=== PATIENT | female | born 1990 | race Caucasian/White ===

== ENCOUNTER 2020-04-25 11:51 | Outpatient (REF) | payer OTHER, SELFPAY | END 2020-04-25 11:52 | disposition home or self-care (01) | LOC: HO.LNP 11:51 | PROVIDERS: Visit Provider Internal Medicine | DX: Z20.822 Contact with and (suspected) exposure to COVID-19 (principal); J01.90 Acute sinusitis, unspecified | CPT/HCPCS: U0003 ==

== ENCOUNTER 2020-07-06 11:24 | Outpatient (REF) | payer OTHER, SELFPAY ==
[2020-07-06 13:49] LABS: MANUAL DIFF FLAG NO
[2020-07-06 14:02] LABS: Basophils Percent Auto 0.4 % (0-2); Eosinophils Absolute Auto 0.1 X10*3/uL (0.0-0.4); Eosinophils Percent Auto 0.7 % (0-4); Hematocrit 44.6 % (37-47); Hemoglobin 14.2 g/dl (12.0-16.0); Imm Gran Abs Auto 0.02 X10*3/uL (0.00-0.03); Imm Gran Pct Auto 0.2 % (0.0-0.4); Lymphocytes Absolute Auto 2.4 X10*3/uL (1.2-4.9); Lymphocytes Percent Auto 26.6 % (20-40); Mean Corpuscular HGB Conc 31.8 g/dl (31.0-35.0); Mean Corpuscular Hemoglobin 28.9 pg (27.0-33.0); Mean Corpuscular Volume 90.8 fL (80-98); Mean Platelet Volume 10.6 fL (9.4-12.3); Monocytes Absolute Auto 0.7 X10*3/uL (0.1-1.2); Monocytes Percent Auto 7.4 % (2-11); Neutrophils Absolute Auto 5.9 X10*3/uL (2.0-8.3); Neutrophils Percent Auto 64.7 % (45-73); Platelet Count 336 X10*3/uL (160-400); Red Blood Count 4.91 X10*6/uL (4.20-5.50); Red Cell Distribution Width 13.1 % (11.0-16.0); White Blood Count 9.1 X10*3/uL (4.8-10.8)
[2020-07-06 15:27] LABS: Monotest Negative (Negative)
[2020-07-07 09:06] LABS: EBV-NA IgG Index <18.00 U/mL; EBV-VCA IgG Ab <18.00 U/mL; EBV-VCA IgM Ab <36.00 U/mL
== END 2020-07-06 11:25 | disposition home or self-care (01) ==
LOC: HO.HMGCLDS 11:24
PROVIDERS: PCP Internal Medicine; Visit Provider Nurse Practitioner Family
DX: J02.9 Acute pharyngitis, unspecified (principal)
CPT/HCPCS: 36415; 85025; 86308; 86664; 86665

== ENCOUNTER 2020-07-06 11:25 | Outpatient (REF) | payer OTHER, SELFPAY | END 2020-07-06 11:26 | disposition home or self-care (01) | LOC: HO.LAB 11:25 | PROVIDERS: Visit Provider Nurse Practitioner Family | DX: J02.9 Acute pharyngitis, unspecified (principal); Z20.822 Contact with and (suspected) exposure to COVID-19 | CPT/HCPCS: 87071; 87880; U0003; U0005 ==

== ENCOUNTER 2021-02-22 16:28 | Outpatient (REF) | payer OTHER, SELFPAY ==
[2021-02-22 18:53] LABS: Influenza A PCR NEGATIVE (Negative); Influenza B PCR NEGATIVE (Negative); Resp Syncy Virus RNA Qual PCR NEGATIVE (Negative); SARS COV2 PCR INHOUSE NEGATIVE (Negative)
== END 2021-02-22 16:29 | disposition home or self-care (01) ==
LOC: HO.LNP 16:28
PROVIDERS: Visit Provider Internal Medicine
DX: Z20.822 Contact with and (suspected) exposure to COVID-19 (principal); R43.9 Unspecified disturbances of smell and taste
CPT/HCPCS: 0241U

== ENCOUNTER 2021-09-07 15:21 | Outpatient (REF) | payer OTHER, SELFPAY ==
[2021-09-07 16:03] LABS: Influenza A PCR NEGATIVE (Negative); Influenza B PCR NEGATIVE (Negative); Resp Syncy Virus RNA Qual PCR NEGATIVE (Negative); SARS COV2 PCR INHOUSE NEGATIVE (Negative)
== END 2021-09-07 15:22 | disposition home or self-care (01) ==
LOC: HO.LNP 15:21
PROVIDERS: Visit Provider Physician Assistant
DX: Z20.822 Contact with and (suspected) exposure to COVID-19 (principal); J01.90 Acute sinusitis, unspecified
CPT/HCPCS: 0241U

== ENCOUNTER 2022-02-08 10:28 | Outpatient (REF) | payer OTHER, SELFPAY ==
[2022-02-08 11:10] LABS: MANUAL DIFF FLAG NO
[2022-02-08 11:19] LABS: Basophils Percent Auto 0.3 % (0-2); Eosinophils Percent Auto 0.5 % (0-4); Hematocrit 41.1 % (37.0-47.0); Hemoglobin 13.4 g/dl (12.0-16.0); Imm Gran Abs Auto 0.02 X10*3/uL (0.00-0.03); Imm Gran Pct Auto 0.3 % (0.0-0.4); Lymphocytes Absolute Auto 1.6 X10*3/uL (1.2-4.9); Mean Corpuscular HGB Conc 32.6 g/dl (31.0-35.0); Mean Corpuscular Hemoglobin 28.6 pg (27.0-33.0); Mean Corpuscular Volume 87.8 fL (80.0-98.0); Mean Platelet Volume 10.4 fL (9.4-12.3); Monocytes Absolute Auto 0.4 X10*3/uL (0.1-1.2); Monocytes Percent Auto 6.6 % (2-11); Neutrophils Absolute Auto 3.9 x10*3/uL (2.0-8.3); Neutrophils Percent Auto 65.3 % (45-73); Platelet Count 259 X10*3/uL (160-400); Red Blood Count 4.68 X10*6/uL (4.20-5.50); Red Cell Distribution Width 12.7 % (11.0-16.0); White Blood Count 5.9 X10*3/uL (4.8-10.8)
[2022-02-08 12:32] LABS: Alanine Aminotransferase 13 U/L (0-31); Albumin Level 4.2 g/dL (3.5-5.0); Alkaline Phosphatase 65 U/L (39-117); Anion Gap 13 (12-20); Aspartate Amino Transferase 13 U/L (5-31); Bilirubin Total 0.5 mg/dL (0.0-1.0); Blood Urea Nitrogen 15 mg/dL (9-16); Carbon Dioxide 25 mmol/L (22-29); Chloride 104 mmol/L (96-108); Cholesterol 144 mg/dL; Estimated Glomerular Filt Rate > 60; Glucose Fasting 99 mg/dL (60-99); HDL Cholesterol 57 mg/dL; LDL Cholesterol Calculated 80 mg/dl; Potassium 4.4 mmol/L (3.3-5.1); Sodium 138 mmol/L (135-145); Total Protein 6.9 g/dL (6.5-8.0); Triglycerides 37 mg/dL
[2022-02-08 12:51] LABS: TSH reflex Free T4 0.46 uIU/mL (0.32-4.0)
== END 2022-02-08 10:29 | disposition home or self-care (01) ==
LOC: HO.HMGCLDS 10:28
PROVIDERS: PCP Internal Medicine; Visit Provider Internal Medicine
DX: Z00.00 Encounter for general adult medical examination without abnormal findings (principal)
CPT/HCPCS: 36415; 80053; 80061; 84443; 85025

== ENCOUNTER 2022-04-12 09:06 | Emergency (ER) | payer OTHER, SELFPAY ==
--- NOTE | ~2022-04-12 | XR_ITS ---
EXAMINATION: XR CHEST CLINICAL INFORMATION: SOB. COMPARISON: None TECHNIQUE: Frontal view of the chest was obtained. FINDINGS: No significant abnormality is noted involving the heart, lungs, mediastinum, bony thorax or soft tissues. XR/XR chest 1V IMPRESSION: Unremarkable chest examination.
[2022-04-12 09:08] VITALS: BP 117/76; PULSE 108; RESP 18; TEMP 36.7; O2SAT 100; BMI 42.2
--- NOTE | 2022-04-12 09:28 | ED.SOB ---
HPI - SOB/Dyspnea General Chief Complaint: Dyspnea Stated Complaint: DIFF BREATHING Time Seen by Provider: 04/12/22 09:22 Source: patient Mode of arrival: ambulatory History of Present Illness HPI Narrative: 31-year-old female no significant past medical history presenting to the ED complaining chills, congestion, headache, nausea, vomiting, and SOB since yesterday. Headache not maximal onset. Denies fever, chest pain, abdominal pain, diarrhea/constipation, recent travel, oral OCPs, cigarette smoking, sick contacts MD elicited complaint: shortness of breath Onset (ago): hour(s) Related Data Previous Rx's Medication Instructions Recorded hydrocortisone 1 % topical cream 1 appl topical TID PRN skin 09/07/21 (Cortisone (hydrocortisone)) irritation 12 days #28.35 grams omeprazole 20 mg capsule,delayed 20 mg PO DAILY #30 caps 01/30/22 release conkdburua-bbzpibcplcsrs-lopxjjwt 1 cap PO Q4-6H PRN headache #14 04/12/22 50 mg-300 mg-40 mg capsule caps (Fioricet) ondansetron 4 mg disintegrating 4 mg PO Q8H PRN nausea and 04/12/22 tablet vomiting #10 tabs Allergies Allergy/AdvReac Type Severity Reaction Status Date / Time amoxicillin [AMOXICILLIN] Allergy Unknown HIVES Verified 01/03/22 10:57 penicillin V Allergy Unknown hives Verified 01/03/22 10:57 Penicillins [PCN] Allergy Unknown HIVES Verified 01/03/22 10:57 Review of Systems Review of Systems: Constitutional:No Fever, + Chills ENT/Mouth: No Ear Pain, + Nasal Congestion, No Sinus Pain, No Hoarseness, No sore throat, + Rhinorrhea, No Swallowing Difficulty Cardiovascular: No Chest Pain, + SOB Respiratory: + Cough, No Sputum, No Wheezing Gastrointestinal: + Nausea, + Vomiting, No Diarrhea, No Constipation, No Abdominal pain Genitourinary: No Dysuria, No Urinary Frequency, No Urgency, No Flank Pain Musculoskeletal: No joint pain, + Myalgias, No Joint Swelling Skin: No Skin Lesions, No rash Neuro: No Weakness, No Numbness, No Paresthesias Yes all other systems are reviewed and are negative Constitutional: Constitutional: Reports as per [facility] Past Medical History Attestation statement: The following information was validated with the patient. Social History Social History Housing: House Alcohol intake: unknown Patient Tobacco Use Status: Former Tobacco user (10 years ago) Smoked in Last 30 Days: No e-Cigarette/Vaping Use: Never Used Use of substances other than those prescribed or required for medical reasons: Unknown Advance Directives: No Advance Directives Information Provided: No Patient : No Current occupational status: employed Cognitive needs: No Hearing needs: No Vision needs: Yes Physical Exam Vital Signs: Vital Signs: Last Vital Signs Temp 98.0 F 04/12/22 09:08 Pulse 95 04/12/22 11:01 Resp 18 04/12/22 09:08 BP 117/76 04/12/22 09:08 Pulse Ox 96 04/12/22 11:01 O2 Del Method 04/12/22 11:01 BMI result Body Mass Index 42.2 Const: General: cooperative, healthy appearing, no acute distress, alert and awake Orientation/consciousness: patient oriented x3 Limitations: no limitations HEENT: Head: Yes normal to inspection and Yes atraumatic Ears: hearing grossly normal bilaterally, external ears normal, TM's normal bilaterally and mastoids normal General nose exam: Normal external nose present Face and sinus: Yes normal facial exam Mouth: Normal oral and palatal mucosa present Throat: Yes posterior oropharynx normal, Yes tonsils normal, Yes uvula midline, No peritonsillar mass, No uvula laterally displaced and No uvular edema Eyes: General: appearance normal, both eyes and all related structures EOM: EOMs intact bilaterally Neck: Neck: Yes normal visual inspection and Yes no meningeal signs Resp: Effort & Inspection: normal respiratory effort, no respiratory distress and no stridor Auscultation: clear to auscultation bilaterally, no rales, no rhonchi and no wheezes Cardio: Rate: regular rate Heart sounds: S1 normal heart sound present and S2 normal heart sound present GI: Inspection: Yes normal to inspection Palpation (GI): Soft to palpation, nontender, no guarding and not rigid Skin: Rashes: no rashes Wounds: no wounds Neuro: General: patient oriented x3, tone normal and no meningeal signs Gait exam (Neuro): Normal gait present Extrem: General: Yes normal to inspection Course Course Course Narrative: 1052--COVID-19 and influenza negative. CXR unremarkable On re-evaluation patient reports symptomatic improvement. Feels safe for discharge with time, headache resolved. Results discussed with patient including worrisome signs and symptoms and strict return precautions, and when to return to the emergency department. They verbalized understanding and feel safe for discharge at this time. Medications Administered Discontinued Medications Generic Name Dose Route Start Last Admin Trade Name Angie PRN Reason Stop Dose Admin Acetaminophen/Butalbital/Caffeine 1 tab 04/12/22 09:33 04/12/22 09:42 Butalb/Acetamin/Caff 50/325/40 Tablet PO 04/12/22 09:34 1 tab ONCE ONE Administration Ondansetron HCl 4 mg 04/12/22 09:33 04/12/22 09:42 Ondansetron Odt 4 Mg Tab.Rapdis TRANSLINGU 04/12/22 09:34 4 mg ONCE ONE Administration Medical Decision Making Medical Decision Making MDM Narrative: 31-year-old female no significant past medical history presenting to the ED complaining chills, congestion, headache, nausea, vomiting, and SOB since yesterday. On exam tachycardic to 108 likely from active dry heaving during evaluation, lungs CTA, nontoxic appearing, abdomen soft/nontender. Concern for viral illness. Rule out pneumonia. Low suspicion for ACS/PE or intra-abdominal pathology including appendicitis/diverticulitis Plan: COVID-19/influenza, CXR, PO Fioricet/Zofran, p.o. challenge Please refer to course for remaining clinical decision making, interpretation of labs/imaging results, and discussions with consultants and/or family members. Differential Diagnosis Differential Diagnoses: The differential diagnosis associated with the presentation includes As above Lab Data Labs: Lab Results 04/12/22 04/12/22 Range/Units 09:13 09:13 COVID-19 (ADARSH) Negative (Negative) COVID-19 Clin Com See Note Influenza Type A (SHELIA) Negative (Negative) Influenza Type B (SHELIA) Negative (Negative) Influenza A & B Note See Note Radiology Impression Discussion of test interpretation with radiology: I have reviewed the radiologist's reading. Prescription Management I considered prescription management with: Pain Medication and Antiviral Discharge Plan Discharge Clinical Impression: Acute viral syndrome Patient Disposition: Home, Self-Care Instructions: Viral Syndrome (ED) Additional Instructions: You tested negative for COVID-19 and the flu. Her x-ray is unremarkable Fioricet is for headaches, take as needed, be aware this has Tylenol mixed in do not exceed 4 g in 1 day Zofran as for nausea take as needed Please stay hydrated, rest Follow-up with her doctor If symptoms persist or worsen return to the emergency department Prescriptions: New ondansetron 4 mg tablet,disintegrating 4 mg PO Q8H PRN (Reason: nausea and vomiting) Qty: 10 0RF xgomntnlzi-grjsduqxtveok-hhkd [Fioricet] 50-300-40 mg capsule 1 cap PO Q4-6H PRN (Reason: headache) Qty: 14 0RF No Action omeprazole 20 mg capsule,delayed release(DR/EC) 20 mg PO DAILY Qty: 30 6RF hydrocortisone [Cortisone (hydrocortisone)] 1 % cream 1 appl topical TID PRN (Reason: skin irritation) 12 Days Qty: 28.35 0RF Referrals: Bridgette Del Rio MD [Primary Care Provider] - 1 week Interventions: ED Discharge Assessment Last Done: 04/12/22 11:01 Discharge Date/Time: 04/12/22 11:03
[2022-04-12 09:36] LABS: COVID-19 Test Negative (Negative); IDNOW Serial# 16C4AD1C; IDNOW Serial# BCCEAD1C; Influenza A Negative (Negative); Influenza B2 Negative (Negative)
[2022-04-12] MEDS: Butalb/Acetamin/Caff 50/325/40 TABLET 1 TAB PO (09:42)
[2022-04-12] MEDS: Ondansetron ODT 4 MG TAB.RAPDIS TRANSLINGU (09:42)
[2022-04-12 11:01] VITALS: PULSE 95; O2SAT 96
== END 2022-04-12 11:03 | disposition home or self-care (01) ==
PROVIDERS: Emergency Provider Emergency Medicine Emergency Medical Services; PCP Internal Medicine
DX: B34.9 Viral infection, unspecified (principal); R06.02 Shortness of breath; Z20.822 Contact with and (suspected) exposure to COVID-19
CPT/HCPCS: 71045; 87502; 87635; 99283; 99284

== ENCOUNTER 2022-05-20 08:32 | Outpatient (REF) | payer OTHER, SELFPAY ==
[2022-05-20 08:47] LABS: Binax Internal Control QC Valid; Binax Now Covid-19 Ag Positive (Negative); Binax Performed by: HO.BONILM
== END 2022-05-20 08:33 | disposition home or self-care (01) ==
LOC: HO.HMGCLDS 08:32
PROVIDERS: PCP Internal Medicine; Visit Provider Emergency Medicine
DX: J06.9 Acute upper respiratory infection, unspecified (principal); Z20.822 Contact with and (suspected) exposure to COVID-19
CPT/HCPCS: 87811; C9803

== ENCOUNTER 2022-09-05 17:49 | Emergency (ER) | payer OTHER, SELFPAY ==
--- NOTE | ~2022-09-05 | XR_ITS ---
EXAMINATION: XR CHEST CLINICAL INFORMATION: Chest pain COMPARISON: 04/12/2022, 01/01/2019 TECHNIQUE: 2 views of the chest were obtained. FINDINGS: No acute finding. The lung laureano are grossly clear. Prominent cardiac silhouette but this could be due to projection. There is no infiltrate. No effusion. The hilar regions do not appear pathologically enlarged. XR/XR chest 2V IMPRESSION: Mild cardiac silhouette prominence. Could be projectional. Otherwise unremarkable
[2022-09-05 18:22] VITALS: BP 122/82; PULSE 88; RESP 18; TEMP 36.8; O2SAT 100; BMI 39.1
--- NOTE | 2022-09-05 18:23 | ECG_ITS ---
Test Reason : dizziness Blood Pressure : / mmHG Vent. Rate : 088 BPM Atrial Rate : 088 BPM P-R Int : 136 ms QRS Dur : 090 ms QT Int : 372 ms P-R-T Axes : 038 062 038 degrees QTc Int : 450 ms Normal sinus rhythm Normal ECG No previous ECGs available Referred By: Patricia Hickman Electronically Signed By:DUANE PARHAM MD
--- NOTE | 2022-09-05 18:23 | ED.GENADULT ---
HPI - General Adult General Chief complaint: General Medical Stated complaint: Chest pain/n/v/d/diff breathing Time Seen by Provider: 09/05/22 23:34 Source: patient, RN notes reviewed and old records reviewed Mode of arrival: ambulatory Limitations: no limitations History of Present Illness HPI narrative: 31-year-old female who denies any past medical history presents for evaluation of headache, dry cough, chest pain Patient reports that she woke up this morning with a mild headache She states that she was vomiting approximately every 20 minutes a few hours The nausea has since subsided However now she still has a frontal headache The pain is a 7/10. The patient reports that 3 days ago she returned from the [facility] [place] She also complains of a dry cough and some mild chest pain Related Data Previous Rx's Medication Instructions Recorded azithromycin 250 mg tablet See Rx Instructions PO .COMPLEX #6 08/22/22 tabs prednisone 20 mg tablet 20 mg PO DAILY #5 tabs 08/22/22 ehmegfpuvd-jvgznkzwosala-mktffagg 1 cap PO TID PRN headache #15 caps 09/06/22 50 mg-300 mg-40 mg capsule (Fioricet) ondansetron 4 mg disintegrating 4 mg PO Q8H PRN nausea and 09/06/22 tablet vomiting #20 tabs Allergies Allergy/AdvReac Type Severity Reaction Status Date / Time amoxicillin [AMOXICILLIN] Allergy Unknown HIVES Verified 08/22/22 12:01 penicillin V Allergy Unknown hives Verified 08/22/22 12:01 Penicillins [PCN] Allergy Unknown HIVES Verified 08/22/22 12:01 Review of Systems Constitutional: Constitutional: Reports as per HPI, Denies body ache(s), Denies chills, Denies fatigue, Denies fever(s) and Reports headache(s) ENT: Reports dry mouth and Reports headache(s) Cardiovascular: Cardiovascular: Reports chest pain and Denies dyspnea Respiratory: Respiratory: Reports cough and Denies dyspnea Gastrointestinal: Gastrointestinal: Denies abdominal pain, Denies constipation, Denies nausea and Denies vomiting Genitourinary: Genitourinary: Denies dysuria Neurologic: Reports headache(s) and Denies focal weakness Endocrine: Endocrine: Denies fatigue PMF Family History Family History Father Hypertension Mental health disorder Mother No problems noted. Social History Social History Housing: House Alcohol intake: unknown Patient Tobacco Use Status: Former Tobacco user (10 years ago) e-Cigarette/Vaping Use: Never Used Advance Directives: No Advance Directives Information Provided: Yes Current occupational status: employed Cognitive needs: No Hearing needs: No Vision needs: Yes Physical Exam ED Vital Signs: Vital Signs - 24 hr 09/05/22 18:22 Temperature 98.3 F Pulse Rate 88 Respiratory Rate 18 Blood Pressure 122/82 Pulse Oximetry 100 Oxygen Delivery Method Room Air BMI result Body Mass Index 39.1 Const General: healthy appearing, comfortable, no acute distress, alert and awake Nutritional Appearance: well nourished Orientation/consciousness: patient oriented x3 HENMT Head: Yes normocephalic and Yes atraumatic Ears: TM's normal bilaterally Throat: Yes posterior oropharynx normal Eyes Eyelids: Yes eyelids normal Conjunctivae: conjunctivae normal Sclerae: sclerae normal Corneas: corneas normal Pupils: Equal, round and reactive pupils present EOM: EOMs intact bilaterally Neck Neck: Yes full ROM Resp Effort & Inspection: normal respiratory effort, able to speak in complete sentences, no audible wheezes and not labored Auscultation: clear to auscultation bilaterally Cardio Rate: regular rate Rhythm: regular rhythm GI Inspection: No distended Palpation (GI): Soft to palpation, not firm, nontender, no guarding and not rigid Auscultation: normoactive bowel sounds Skin General skin exam: no rashes or lesions noted and elasticity normal Neuro General: patient oriented x3 Cranial nerves: Yes CN's II-XII intact bilaterally, Yes Equal, round and reactive pupils present and Yes Bilaterally intact EOM present Cognition (Neuro): normal cognition Extrem Other: Moving all extremities well without any obvious deformities Course Course Course Narrative: RME performed by Patricia Hickman PA-C. Patient is a 31 year old assigned female at presenting to the emergency department with a cough and migraine. Labs, imaging, and swabs ordered. Patient placed back in the waiting room pending room availability and results. Medications Administered Discontinued Medications Generic Name Dose Route Start Last Admin Trade Name Freq PRN Reason Stop Dose Admin Acetaminophen/Butalbital/Caffeine 1 tab 09/05/22 23:41 09/06/22 00:09 Butalb/Acetamin/Caff 50/325/40 Tablet PO 09/05/22 23:42 1 tab ONCE ONE Administration Ketorolac Tromethamine 30 mg 09/05/22 23:41 09/06/22 00:09 Ketorolac Tromethamine 30 Mg/Ml Vial IM 09/05/22 23:42 30 mg ONCE ONE Administration Medical Decision Making Medical Decision Making [facility] Narrative: 31-year-old female presents for evaluation of headache, cough, chest pain, vomiting. Consistent with viral syndrome. She had a very extensive workup that included EKG, chest x-ray, labs all of which was reassuring. Patient does have a slight leukocytosis of 14.3 which is likely reactive from the vomiting. Influenza and COVID testing negative. Chest x-ray clear, EKG nonischemic and the patient's troponin is negative. Will treat the headache with Toradol and Fioricet. The patient is not currently nauseous or actively vomiting Differential Diagnosis Differential Diagnoses: The differential diagnosis associated with the presentation includes Viral syndrome Acute headache Chest pain ACS Bronchitis Pneumonia Lab Data [facility] Lab Attestation statement: I reviewed the patient's lab results. 09/05/22 19:02 09/05/22 19:02 Labs: Lab Results 09/05/22 09/05/22 09/05/22 Range/Units 19:02 19:02 19:02 WBC 14.1 H (4.8-10.8) X10*3/uL RBC 4.85 (4.20-5.50) X10*6/uL Hgb 14.0 (12.0-16.0) g/dl Hct 42.4 (37.0-47.0) % MCV 87.4 (80.0-98.0) fL MCH 28.9 (27.0-33.0) pg MCHC 33.0 (31.0-35.0) g/dl RDW 12.8 (11.0-16.0) % Plt Count 306 (160-400) X10*3/uL MPV 9.5 (9.4-12.3) fL Immature Gran % (Auto) 0.4 (0.0-0.4) % Neut % (Auto) 85.7 H (45-73) % Lymph % (Auto) 11.0 L (20-40) % [place] % (Auto) 2.7 (2-11) % Eos % (Auto) 0.1 (0-4) % Baso % (Auto) 0.1 (0-2) % Lymph # (Auto) 1.5 (1.2-4.9) X10*3/uL [place] # (Auto) 0.4 (0.1-1.2) X10*3/uL Eos # (Auto) 0.0 (0.0-0.4) X10*3/uL Baso # (Auto) 0.0 (0.0-0.2) X10*3/uL Abs Immat Gran (auto) 0.05 H (0.00-0.03) X10*3/uL Absolute Neuts (auto) 12.1 H (2.0-8.3) x10*3/uL Absolute Nucleated RBC 0.000 (0.0-0.012) X10*3/uL Nucleated RBC % (auto) 0.0 (0.0-0.2) /100WBC Sodium 136 (135-145) mmol/L Potassium 4.3 (3.3-5.1) mmol/L Chloride 102 (96-108) mmol/L Carbon Dioxide 27 (22-29) mmol/L Anion Gap 11 L (12-20) BUN 15 (9-16) mg/dL Creatinine 0.72 (0.5-1.4) mg/dL Estim Creat Clear Calc 115.7 Estimated GFR > 60 Random Glucose 113 (60-115) mg/dL Calcium 9.7 D (8.4-10.2) mg/dL Magnesium 1.9 (1.6-2.6) mg/dL Total Bilirubin 0.5 (0.0-1.0) mg/dL AST 20 (5-31) U/L ALT 20 (0-31) U/L Alkaline Phosphatase 81 (39-117) U/L Troponin I High Sens < 2.7 (<3.5-17.0) ng/L B-Natriuretic Peptide (<100) pg/mL Total Protein 7.5 (6.5-8.0) g/dL Albumin 4.3 (3.5-5.0) g/dL Beta HCG, Quant < 2 mIU/mL COVID-19 (ADARSH) (Negative) COVID-19 Clin Com Influenza Type A (SHELIA) (Negative) Influenza Type B (SHELIA) (Negative) Influenza A & B Note 09/05/22 09/05/22 09/05/22 Range/Units 19:02 19:02 19:02 WBC (4.8-10.8) X10*3/uL RBC (4.20-5.50) X10*6/uL Hgb (12.0-16.0) g/dl Hct (37.0-47.0) % MCV (80.0-98.0) fL MCH (27.0-33.0) pg MCHC (31.0-35.0) g/dl RDW (11.0-16.0) % Plt Count (160-400) X10*3/uL MPV (9.4-12.3) fL Immature Gran % (Auto) (0.0-0.4) % Neut % (Auto) (45-73) % Lymph % (Auto) (20-40) % [place] % (Auto) (2-11) % Eos % (Auto) (0-4) % Baso % (Auto) (0-2) % Lymph # (Auto) (1.2-4.9) X10*3/uL [place] # (Auto) (0.1-1.2) X10*3/uL Eos # (Auto) (0.0-0.4) X10*3/uL Baso # (Auto) (0.0-0.2) X10*3/uL Abs Immat Gran (auto) (0.00-0.03) X10*3/uL Absolute Neuts (auto) (2.0-8.3) x10*3/uL Absolute Nucleated RBC (0.0-0.012) X10*3/uL Nucleated RBC % (auto) (0.0-0.2) /100WBC Sodium (135-145) mmol/L Potassium (3.3-5.1) mmol/L Chloride (96-108) mmol/L Carbon Dioxide (22-29) mmol/L Anion Gap (12-20) BUN (9-16) mg/dL Creatinine (0.5-1.4) mg/dL Estim Creat Clear Calc Estimated GFR Random Glucose (60-115) mg/dL Calcium (8.4-10.2) mg/dL Magnesium (1.6-2.6) mg/dL Total Bilirubin (0.0-1.0) mg/dL AST (5-31) U/L ALT (0-31) U/L Alkaline Phosphatase (39-117) U/L Troponin I High Sens (<3.5-17.0) ng/L B-Natriuretic Peptide 18 (<100) pg/mL Total Protein (6.5-8.0) g/dL Albumin (3.5-5.0) g/dL Beta HCG, Quant mIU/mL COVID-19 (ADARSH) Negative (Negative) COVID-19 Clin Com See Note Influenza Type A (SHELIA) Negative (Negative) Influenza Type B (SHELIA) Negative (Negative) Influenza A & B Note See Note Independent Interpretation I performed an independent interpretation of an: EKG (Sinus rhythm with a rate of 88 beats per minute. Nonischemic EKG) and Plain X-Ray (X-ray without acute infiltrate) Discharge Plan Discharge Clinical Impression: Acute viral syndrome, Headache Patient Disposition: Home, Self-Care Instructions: Viral Syndrome (ED) Additional Instructions: Use Zofran as needed for any further nausea or vomiting. Use Fioricet for any further headaches Drink lots of fluids to stay hydrated Prescriptions: New gdhblmsytb-ekemynygsukdx-nwbj [Fioricet] 50-300-40 mg capsule 1 cap PO TID PRN (Reason: headache) Qty: 15 0RF ondansetron 4 mg tablet,disintegrating 4 mg PO Q8H PRN (Reason: nausea and vomiting) Qty: 20 0RF No Action azithromycin 250 mg tablet See Rx Instructions PO .COMPLEX Qty: 6 0RF Rx Instructions: For 250 mg dose pack: take 500 mg today (day 1), then 250 mg for 4 days (days 2-5) PO prednisone 20 mg tablet 20 mg PO DAILY Qty: 5 0RF
--- NOTE | 2022-09-05 19:05 | MHC.EDTECH ---
PT EKG DONE AND WAS READ BY PROVIDER ,COVID AND FLU SWAB COLLECTED AND BLOOD DRAWN AND ALL SENT TO LAB .
[2022-09-05 19:08] LABS: MANUAL DIFF FLAG NO
[2022-09-05 19:10] LABS: Basophils Percent Auto 0.1 % (0-2); Eosinophils Percent Auto 0.1 % (0-4); Hematocrit 42.4 % (37.0-47.0); Imm Gran Abs Auto 0.05 X10*3/uL (0.00-0.03); Imm Gran Pct Auto 0.4 % (0.0-0.4); Lymphocytes Absolute Auto 1.5 X10*3/uL (1.2-4.9); Mean Corpuscular Hemoglobin 28.9 pg (27.0-33.0); Mean Corpuscular Volume 87.4 fL (80.0-98.0); Mean Platelet Volume 9.5 fL (9.4-12.3); Monocytes Absolute Auto 0.4 X10*3/uL (0.1-1.2); Monocytes Percent Auto 2.7 % (2-11); Neutrophils Absolute Auto 12.1 x10*3/uL (2.0-8.3); Neutrophils Percent Auto 85.7 % (45-73); Platelet Count 306 X10*3/uL (160-400); Red Blood Count 4.85 X10*6/uL (4.20-5.50); Red Cell Distribution Width 12.8 % (11.0-16.0); White Blood Count 14.1 X10*3/uL (4.8-10.8)
[2022-09-05 19:28] LABS: IDNOW Serial# BCCEAD1C; Influenza A Negative (Negative); Influenza B2 Negative (Negative)
[2022-09-05 19:29] LABS: COVID-19 Test Negative (Negative); IDNOW Serial# 08D9AD1C
[2022-09-05 19:33] LABS: B Type Natriuretic Peptide 18 pg/mL (<100)
[2022-09-05 19:35] LABS: Alanine Aminotransferase 20 U/L (0-31); Albumin Level 4.3 g/dL (3.5-5.0); Alkaline Phosphatase 81 U/L (39-117); Anion Gap 11 (12-20); Aspartate Amino Transferase 20 U/L (5-31); Bilirubin Total 0.5 mg/dL (0.0-1.0); Blood Urea Nitrogen 15 mg/dL (9-16); Calcium 9.7 mg/dL (8.4-10.2); Carbon Dioxide 27 mmol/L (22-29); Chloride 102 mmol/L (96-108); Creatinine Clr Calc Pharmacy 115.7; Estimated Glomerular Filt Rate > 60; Glucose Random 113 mg/dL (60-115); Magnesium 1.9 mg/dL (1.6-2.6); Potassium 4.3 mmol/L (3.3-5.1); Sodium 136 mmol/L (135-145); Total Protein 7.5 g/dL (6.5-8.0)
[2022-09-05 19:37] LABS: HCG Quantitative < 2 mIU/mL
[2022-09-05 19:38] LABS: Troponin-I High Sensitivity < 2.7 ng/L (<3.5-17.0)
--- NOTE | 2022-09-05 23:36 | PC.NURSE ---
pt brought to tx area from . Ambulatory with steady gait, no facial grimace. Talking with sig other at bedside. Awaiting provider eval
[2022-09-06] MEDS: Butalb/Acetamin/Caff 50/325/40 TABLET 1 TAB PO (00:09)
[2022-09-06] MEDS: Ketorolac Tromethamine 30 MG/ML VIAL IM (00:09)
== END 2022-09-06 02:03 | disposition home or self-care (01) ==
PROVIDERS: Physician Assistant Medical; Emergency Provider Emergency Medicine; PCP Nurse Practitioner Family
DX: B34.9 Viral infection, unspecified (principal); R51.9 Headache, unspecified; Z20.822 Contact with and (suspected) exposure to COVID-19; R06.02 Shortness of breath
CPT/HCPCS: 71046; 80053; 83735; 83880; 84484; 84702; 85025; 87502; 87635; 93005; 96372; 99283; 99284; J1885

== ENCOUNTER 2022-12-22 15:19 | Outpatient (AMB) | payer OTHER, SELFPAY ==
[2022-12-22 15:51] VITALS: BP 124/74; PULSE 97; TEMP 36.7; O2SAT 96; BMI 42.4
--- NOTE | 2022-12-22 15:51 | AM.OFFWIN_ITS ---
Intake Vital Signs 12/22/22 15:51 Height 5 ft Weight 217 lb 6 oz BMI 42.4 BP 124/74 Blood Pressure Location Lt brachial Position Sitting Pulse 97 Pulse Source Pulse Oximeter Temp 98.1 F Temp Source Oral Pulse Oximetry (%) 96 Oxygen Delivery Method Room Air Intake Visit Reasons: EST/right hand pointer finger swelling Intake Note: Patient is here today for black and blue finger, pt states last night was hit with a metal fan and fing.er has no feeling. Patient Tobacco Use Status: Former Tobacco user (10 years ago) Allergies amoxicillin [AMOXICILLIN] Allergy (Unknown, Verified 12/22/22 15:51) HIVES penicillin V Allergy (Unknown, Verified 12/22/22 15:51) hives Penicillins [PCN] Allergy (Unknown, Verified 12/22/22 15:51) HIVES Do you need a note to return to daycare/school/sports/work: No HPI EST/right hand pointer finger swelling HPI Details 32-year-old female presents to the [facility] for a sick visit. Patient injured herself when a metal fan hit her hand. She has a swelling over the index finger and reporting a feeling of numbness over the finger. PFSH Family History Father Hypertension Mental health disorder Mother No problems noted. Social History Housing: House Alcohol intake: unknown Patient Tobacco Use Status: Former Tobacco user (10 years ago) e-Cigarette/Vaping Use: Never Used Current occupational status: employed Cognitive needs: No Hearing needs: No Vision needs: Yes Physical Exam Vital Signs: Last Vital Signs Temp 98.1 F 12/22/22 15:51 Pulse 97 12/22/22 15:51 BP 124/74 12/22/22 15:51 Pulse Ox 96 12/22/22 15:51 Oxygen Delivery Method Room Air 12/22/22 15:51 BMI result Body Mass Index 42.4 Extrem Other: Left hand: Bruising over the index finger with pain on flexion. Assessment & Plan Assessment & Plan (1) Contusion of left hand: Code(s): S60.222A - Contusion of left hand, initial encounter Qualifiers: Encounter type: initial encounter Qualified Code(s): S60.222A - Contusion of left hand, initial encounter Plan: X-ray images personally reviewed by me. Plan X-ray images were personally reviewed by me. No fractures seen. Splint provided. Orders: Orders XR hand LT min 3V 12/22/22 S60.222A - Contusion of left hand, initial encounter Coding Level of Care Code Est Pt Level 4 (75662) Diagnoses Contusion of left hand, initial encounter S60.222A Encounter type: initial encounter
== END 2022-12-22 17:03 | disposition home or self-care (01) ==
PROVIDERS: PCP Nurse Practitioner Family; Visit Provider Internal Medicine
DX: S60.222A Contusion of left hand, initial encounter (principal)
CPT/HCPCS: 99214

== ENCOUNTER 2022-12-22 16:16 | Outpatient (REF) | payer OTHER, SELFPAY ==
--- NOTE | ~2022-12-22 | XR_ITS ---
EXAMINATION: XR HAND, LEFT CLINICAL INFORMATION: Contusion of left hand. COMPARISON: None available. TECHNIQUE: PA, lateral, and oblique views of the left hand. FINDINGS: The bones and soft tissues are normal. No fracture. Alignment is anatomic. Joint spaces are maintained. No erosions or soft tissue calcifications. XR/XR hand LT min 3V IMPRESSION: Normal left hand.
== END 2022-12-22 16:17 | disposition home or self-care (01) ==
LOC: HO.HMGCX 16:16
PROVIDERS: PCP Internal Medicine; Visit Provider Internal Medicine
DX: S60.222A Contusion of left hand, initial encounter (principal)
CPT/HCPCS: 73130

== ENCOUNTER 2023-01-09 12:52 | Outpatient (AMB) | payer OTHER, SELFPAY ==
--- NOTE | 2023-01-09 12:57 | MHC.PC.OV ---
Vital Signs 01/09/23 12:58 Height 5 ft Weight 215 lb BMI 42.0 BP 102/68 Blood Pressure Location Lt brachial Position Sitting Pulse 77 Pulse Source Pulse Oximeter Pulse Oximetry (%) 100 Oxygen Delivery Method Room Air Intake Visit Reasons: Physical Intake Note: Pt is here today for her PE Allergies amoxicillin [AMOXICILLIN] Allergy (Unknown, Verified 01/09/23 12:57) HIVES penicillin V Allergy (Unknown, Verified 01/09/23 12:57) hives Penicillins [PCN] Allergy (Unknown, Verified 01/09/23 12:57) HIVES Medication List - Last Reconciled 01/09/23 by Bridgette Del Rio MD epinephrine IM levonorgestrel (Mirena) intrauterine Tobacco use date assessed: 01/09/23 Dental Screening Dental Screen Date: 01/09/23 Did you have a dental visit in the last 12 months?: No Was dental information given to patient?: Patient has dentist HPI Physical HPI Details Pt presents for PE. PFSH Family History Father Hypertension Mental health disorder Mother No problems noted. Social History Housing: House Alcohol intake: unknown Patient Tobacco Use Status: Former Tobacco user (10 years ago) e-Cigarette/Vaping Use: Never Used Current occupational status: employed Cognitive needs: No Hearing needs: No Vision needs: Yes Questionnaire PHQ-9 Over the last 2 weeks, how often have you been bothered by any of the following problems? 1. Little interest or pleasure in doing things: more than half the days 2. Feeling down, depressed, or hopeless: several days 3. Trouble falling or staying asleep, or sleeping too much: not at all 4. Feeling tired or having little energy: not at all 5. Poor appetite or overeating: not at all 6. Feeling bad about yourself - or that you are a failure or have let yourself or your family down: not at all 7. Trouble concentrating on things, such as reading the newspaper or watching television: more than half the days 8. Moving or speaking so slowly that other people could have noticed. Or the opposite - being so fidgety or restless that you have been moving around a lot more than usual: not at all 9. Thoughts that you would be better off or of hurting yourself in some way: not at all Total score: 5 Depression Screening Interpretation: Negative Depression Screening Done: Yes Source: Developed by Drs. Chris Braxton, Cynthia Enriquez, Andrea Sheikh and colleagues, with an educational ayo from [employer]. Thrive Questionnaire Date Thrive assessed: 01/03/22 I am a: Patient What is your living situation today?: I have a steady place to live Within the past 12 months, did the food you bought not last and you didn't have the money to get more?: Never true Within the past 12 months, did you worry whether your food would run out before you got money to buy more?: Never true Do you have trouble paying for medicines?: No Do you have trouble getting transportation to medical appointments?: No Do you have trouble paying your heating and electricity bill?: No Do you have trouble taking care of your child, family member or friend?: No Do you have trouble with day-to-day activities such as bathing, preparing meals, shopping, managing finances, etc.?: No Are you currently unemployed and looking for a job?: No Are you interested in more education?: No AUDIT C Alcohol Use Questionnaire (AUDIT-C) 1. How often do you have a drink containing alcohol?: Monthly or less 2. How many drinks containing alcohol do you have on a typical day when you are drinking?: 1 or 2 3. How often do you have six or more drinks on one occasion?: Never Total Score: 1 GONZALO-7 AMB Questionnaire GONZALO-7 Date GONZALO - 7 assessed: 01/09/23 Feeling nervous, anxious, or on edge: 3 = Nearly every day Not being able to stop or control worryin = Nearly every day Worrying too much about different things: 3 = Nearly every day Trouble relaxin = More than half the days Being so restless that it is hard to sit still: 1 = Several days Becoming easily annoyed or irritable: 0 = Not at all Feeling afraid as if something awful might happen: 0 = Not at all Total GONZALO-7 score (0-4 normal; 5-9 mild; 10-14 moderate; 15-21 severe): 12 Source: Developed by Drs. Chris Braxton, Cynthia Enriquez, Andrea Sheikh and colleagues, with an educational ayo from [employer]. Review of Systems Const All systems reviewed & are unremarkable except as noted in HPI and below Reports no additional complaints Eyes Reports no additional complaints ENT Reports no additional complaints Card Reports no additional complaints Resp Reports no additional complaints GI Reports no additional complaints Reports no additional complaints Musc Reports no additional complaints Physical exam (Primary Care) Vital Signs: Last Vital Signs Pulse 77 01/09/23 12:58 BP 102/68 01/09/23 12:58 Pulse Ox 100 01/09/23 12:58 Oxygen Delivery Method Room Air 01/09/23 12:58 BMI result Body Mass Index 42.0 Tobacco/Smoking Status: Tobacco use Status Tobacco use date assessed 01/09/23 01/09/23 13:05 Patient Tobacco Use Status Former Tobacco user (01/09/23 13:05 years ago) e-Cigarette/Vaping Use Never Used 01/09/23 13:05 PHQ-9: PHQ-9 Score PHQ-9: Total score 5 01/09/23 13:08 Depression Screening Interpretation: Negative Thrive Assessment: Date of Thrive Assessment Date Thrive assessed 01/03/22 01/09/23 13:05 Const General: no acute distress HENMT Head: Yes normal to inspection Ears: hearing grossly normal bilaterally General nose exam: Normal external nose present Face and sinus: Yes normal facial exam Mouth: Normal oral and palatal mucosa present Throat: Yes posterior oropharynx normal Eyes General: appearance normal, both eyes and all related structures Neck Neck: Yes no lymphadenopathy and Yes supple Resp Effort & Inspection: normal respiratory effort Auscultation: clear to auscultation bilaterally Cardio Rhythm: regular rhythm Heart sounds: S1 normal heart sound present and S2 normal heart sound present GI Inspection: Yes normal to inspection Palpation (GI): Soft to palpation Percussion: Yes normal to percussion Auscultation: normal bowel sounds Assessment and Plan Assessment & Plan (1) Annual physical exam: Code(s): Z00.00 - Encounter for general adult medical examination without abnormal findings Plan: well balanced diet, regular exercise discussed. Patient will schedule appointment with the sink cutter. She will be referred to counseling for anxiety and stress management (2) Anxiety: Code(s): F41.9 - Anxiety disorder, unspecified Orders: Referrals Counseling Referral F41.9 - Anxiety disorder, unspecified Coding Level of Care Code Est Pt Prev Care 18-39y(81239) Diagnoses Annual physical exam Z00.00 Anxiety F41.9
[2023-01-09 12:58] VITALS: BP 102/68; PULSE 77; O2SAT 100; BMI 42.0
== END 2023-01-09 13:38 | disposition home or self-care (01) ==
PROVIDERS: PCP Internal Medicine; Visit Provider Internal Medicine
DX: Z00.00 Encounter for general adult medical examination without abnormal findings (principal); F41.9 Anxiety disorder, unspecified
CPT/HCPCS: 99395

== ENCOUNTER 2023-07-17 13:07 | Outpatient (AMB) | payer BC, SELFPAY ==
[2023-07-17 13:08] VITALS: BP 100/60; BMI 46.1
--- NOTE | 2023-07-17 13:08 | A.OFFVIS_ITS ---
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 She thought she had of Kimberly of placed there she was changing doctors a lot because of change of insurance so it is unclear where she might have had the Kimberly really place but it might of been with the mid[facility]ery group. [facility] she had also had Mirena 1 point in her life but felt that it was contributing to increased body hair growth and weight gain and acne. She had that removed and had normal heavy crampy periods for about a year and then she had the Kimberly placed after that. She gets light spotting and breast tenderness before the spotting which tells her that is when her ?? menses would be. She said it was painful when the Kimberly was placed and she says she is probably gained about 70 lb since then. She obviously has had this for many years at this time she has told her boyfriend that they are not having sex for a while until she gets it replaced because she knows she is at increased risk of . She has seen her primary care provider a few times and has had a referral placed for allergy management and is using allergy drops under her tongue which is an improvement over allergy shots she is allergic to everything outside in the environment but says she is not allergic to cats. She thinks the allergy drops her helping. 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 Because of her responsibilities exercising is very difficult but she just bought a treadmill that fits under her couch. PFSH Family History (Updated 07/17/23 @ 13:11 by ZHENG Correia) Father Hypertension Mental health disorder Mother No problems noted. Maternal Grandmother Breast cancer Social History (Updated 07/17/23 @ 13:11 by ZHENG Correia) Housing: House Alcohol intake: current Alcohol intake frequency: holidays/special occasions only Patient Tobacco Use Status: Former Tobacco user (10 years ago) e-Cigarette/Vaping Use: Never Used Current occupational status: employed Cognitive needs: No Hearing needs: No Vision needs: Yes Female Reproductive History Menstrual Age of Menarche: 14 Duration of menses: 3-5 days control method: progestin IUCD Total pregnancies: 1 Ab induced: 1 Date of last pap smear: 07/14/16 (negative) History of abnormal pap smear: No Physical Exam Vital Signs: Last Vital Signs BP 100/60 07/17/23 13:08 BMI result Body Mass Index 46.1 Const General: healthy appearing, comfortable, no acute distress, well developed and alert Nutritional Appearance: average body habitus Orientation/consciousness: patient oriented x3 Limitations: no limitations HEENT Head: Yes normocephalic Neck Neck: Yes normal visual inspection Chest Chest palpation & inspection: normal inspection of the chest Breast/axilla inspection: normal inspection of the breasts and normal inspection of the axillae Breast/axilla palpation: normal palpation of the breasts and normal palpation of the axillae Resp Effort & Inspection: normal respiratory effort GI Inspection: Yes normal to inspection, No Abdominal wall edema and No distended Palpation (GI): Soft to palpation and nontender Other: Vagina pink moist nulliparous pink with minimal mucus. Darkened IUD strings visible in os cervix nulliparous pink smooth mobile nontender uterus slightly difficult to feel secondary to adipose but nontender mobile adnexa nontender good tone with Kegel. General: Yes bladder normal to palpation External Female Exam: normal external appearance and normal appearance of the urethra Speculum Exam - Vagina: normal appearance of the vagina, normal palpation and normal vaginal discharge Speculum Exam - Cervix: normal appearance of the cervix, normal palpation and nontender Bimanual exam- vagina & uterus: normal bimanual exam, normal palpation, uterine size normal, bladder normal to palpation, consistency normal, normal palpation, uterine mobility normal, uterine shape normal, No Cervical tenderness present, non-tender and no cervical motion tenderness Bimanual Exam- Adnexa, other: normal adnexae, no masses, normal and No adnexal tenderness Neuro General: patient oriented x3 Assessment & Plan Assessment & Plan (1) Well woman exam with routine gynecological exam: Code(s): Z01.419 - Encounter for gynecological examination (general) (routine) without abnormal findings (2) Cervical cancer screening: Code(s): Z12.4 - Encounter for screening for malignant neoplasm of cervix (3) Encounter for routine checking of intrauterine contraceptive device (IUD): Code(s): Z30.431 - Encounter for routine checking of intrauterine contraceptive device (4) Encounter for screening examination for sexually transmitted disease: Code(s): Z11.3 - Encounter for screening for infections with a predominantly sexual mode of transmission (5) Obesity, morbid, BMI 40.0-49.9: Code(s): E66.01 - Morbid (severe) obesity due to excess calories Plan -----Discussed in this visit the following: healthy balanced diet, regular and consistent exercise, getting recommended health screens, doing the best she can for her particular health concerns, kegel exercises, pap smear screening and followup recommendations, mammography screening and SBE, normal changes in cycles in her life stage--- ------discussed versus discussed change in that would occur both with weight gain and also with various methods of control that she. Given though it is difficult to say exactly when she has her. But because she does have the premenstrual breast symptoms and light spotting that would be her menses we will still aim to try to plan for replacement of the IUD when she has her ?light menses. Discussed the rationale for this physiologically. Also discussed that anything is possible with changing up the method but in general the Crystal has a larger dose of the hormone than the Kimberly did and eventually amenorrhea would be more expected. Also discussed her efforts with weight loss she is working at it on her own and while it is challenging she has a new treadmill in her house that she is going to be using that fits in her crowded house space. We will see her with the next possible menses for replacement of her IUD. Coding Level of Care Code New Pt Prev Care 18-39yr([id number] Diagnoses Well woman exam with routine gynecological exam Z01.419 Cervical cancer screening Z12.4 Encounter for routine checking of intrauterine contraceptive device (IUD) Z30.431 Encounter for screening examination for sexually transmitted disease Z11.3 Obesity, morbid, BMI 40.0-49.9 E66.01
== END 2023-07-17 13:50 | disposition home or self-care (01) ==
LOC: HO.HWSM 13:07
PROVIDERS: PCP Internal Medicine; Visit Provider Advanced Practice Midwife
DX: Z01.419 Encounter for gynecological examination (general) (routine) without abnormal findings (principal); Z12.4 Encounter for screening for malignant neoplasm of cervix; Z30.431 Encounter for routine checking of intrauterine contraceptive device; Z11.3 Encounter for screening for infections with a predominantly sexual mode of transmission; E66.01 Morbid (severe) obesity due to excess calories
CPT/HCPCS: 99385

== ENCOUNTER 2023-07-17 13:07 | Outpatient (REF) | payer BC, SELFPAY ==
[2023-07-18 02:41] LABS: CT PCR NOT DETECTED (Not Detect.); NG PCR NOT DETECTED (Not Detect.)
[2023-07-18 13:22] LABS: BV Int Neg Control Negative (Negative); BV Int Pos Control Positive (Positive)
[2023-07-23 23:29] LABS: HPV mRNA E6/E7 rflx Not Detected (Not Detected)
== END 2023-07-17 13:08 | disposition home or self-care (01) ==
LOC: HO.LNP 13:07
PROVIDERS: PCP Internal Medicine; Visit Provider Advanced Practice Midwife
DX: Z01.419 Encounter for gynecological examination (general) (routine) without abnormal findings (principal); Z11.51 Encounter for screening for human papillomavirus (HPV); Z20.2 Contact with and (suspected) exposure to infections with a predominantly sexual mode of transmission
CPT/HCPCS: 0353U; 87480; 87510; 87624; 87660; 88142

== ENCOUNTER 2024-01-29 08:14 | Outpatient (AMB) | payer BC, SELFPAY ==
--- NOTE | 2024-01-29 08:11 | A.OFFPC_ITS ---
Vital Signs 01/29/24 08:22 Height 5 ft Weight 261 lb BMI 51.0 BP 110/76 Blood Pressure Location Lt brachial Position Sitting Pulse 75 Pulse Source Pulse Oximeter Pulse Oximetry (%) 100 Oxygen Delivery Method Room Air Intake Visit Reasons: Annual PE Intake Note: Pt is here today for PE. Allergies amoxicillin [AMOXICILLIN] Allergy (Unknown, Verified 01/29/24 08:24) HIVES penicillin V Allergy (Unknown, Verified 01/29/24 08:24) hives Penicillins [PCN] Allergy (Unknown, Verified 01/29/24 08:24) HIVES Medication List - Last Reconciled 01/29/24 by Bridgette Del Rio MD epinephrine IM levonorgestrel (Mirena) intrauterine Tobacco use date assessed: 01/29/24 Dental Screening Dental Screen Date: 01/29/24 Did you have a dental visit in the last 12 months?: Yes Did you have a dental problem in the last 6 months where you did not have access to dental care?: No Was dental information given to patient?: Patient has dentist HPI Annual PE HPI Details Pt presents for PE. PFSH Surgical History Hx of plastic surgery Family History Father Hypertension Mental health disorder Mother No problems noted. Maternal Grandmother Breast cancer Social History Housing: House Alcohol intake: current Alcohol intake frequency: holidays/special occasions only Patient Tobacco Use Status: Never used Tobacco (10 years ago) e-Cigarette/Vaping Use: Never Used service: No Current occupational status: employed Cognitive needs: No Hearing needs: No Vision needs: Yes Female Reproductive History Menstrual Age of Menarche: 14 Questionnaire Thrive Questionnaire Date Thrive assessed: 01/29/24 I am a: Patient What is your living situation today?: I have a steady place to live Within the past 12 months, did you worry whether your food would run out before you got money to buy more?: Sometimes True Do you have trouble paying for medicines?: Yes Do you have trouble getting transportation to medical appointments?: No Do you have trouble paying your heating and electricity bill?: No Do you have trouble taking care of your child, family member or friend?: No Do you have trouble with day-to-day activities such as bathing, preparing meals, shopping, managing finances, etc.?: No Are you currently unemployed and looking for a job?: No Are you interested in more education?: No Please select the resources that you would like help with: None Currently or been in a relationship where the following occur: No concerns reported THRIVE Score: 1 AUDIT C Alcohol Use Questionnaire (AUDIT-C) 1. How often do you have a drink containing alcohol?: 2-3 times a week 2. How many drinks containing alcohol do you have on a typical day when you are drinking?: 3 or 4 3. How often do you have six or more drinks on one occasion?: Monthly Total Score: 6 GONZALO-7 AMB Questionnaire GONZALO-7 Date GONZALO - 7 assessed: 01/29/24 Feeling nervous, anxious, or on edge: 1 = Several days Not being able to stop or control worryin = Several days Worrying too much about different things: 1 = Several days Trouble relaxin = Not at all Being so restless that it is hard to sit still: 0 = Not at all Becoming easily annoyed or irritable: 0 = Not at all Feeling afraid as if something awful might happen: 1 = Several days Total GONZALO-7 score (0-4 normal; 5-9 mild; 10-14 moderate; 15-21 severe): 4 Source: Developed by Drs. Chris Braxton, Cynthia Enriquez, Andrea Sheikh and colleagues, with an educational ayo from [employer]. GONZALO-7 Assessment Billing GONZALO-7 Assessment Tool: GONZALO-7 Assessment 21985 Review of Systems Const All systems reviewed & are unremarkable except as noted in HPI and below Reports no additional complaints Eyes Reports no additional complaints ENT Reports no additional complaints Card Reports no additional complaints Resp Reports no additional complaints GI Reports no additional complaints Physical exam (Primary Care) Vital Signs: Last Vital Signs Pulse 75 01/29/24 08:22 BP 110/76 01/29/24 08:22 Pulse Ox 100 01/29/24 08:22 Oxygen Delivery Method Room Air 01/29/24 08:22 BMI result Body Mass Index 51.0 Tobacco/Smoking Status: Tobacco use Status Tobacco use date assessed 01/29/24 01/29/24 08:30 Patient Tobacco Use Status Never used Tobacco (10 years 01/29/24 08:30 ago) e-Cigarette/Vaping Use Never Used 01/29/24 08:12 Thrive Assessment: Date of Thrive Assessment Date Thrive assessed 01/29/24 01/29/24 08:32 Currently or been in a relationship where the following occur: No concerns reported Const General: no acute distress HENMT Head: Yes normal to inspection Ears: hearing grossly normal bilaterally Mouth: Normal oral and palatal mucosa present Eyes General: appearance normal, both eyes and all related structures Neck Neck: Yes no lymphadenopathy and Yes supple Resp Effort & Inspection: normal respiratory effort Auscultation: clear to auscultation bilaterally Cardio Rhythm: regular rhythm Heart sounds: S1 normal heart sound present and S2 normal heart sound present GI Inspection: Yes normal to inspection Palpation (GI): Soft to palpation Percussion: Yes normal to percussion Auscultation: normal bowel sounds Coding Level of Care Code Est Pt Prev Care 18-39y(10626) Diagnoses Normal pelvic exam Z Annual physical exam Z. 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 - Encounter for general adult medical examination without abnormal findings Category: Medical Plan: Well-balanced diet regular physical activity weight loss discussed with the patient she will have a fasting blood work today (3) Hyperglycemia: Code(s): R73.9 - Hyperglycemia, unspecified Category: Medical Plan: ADA diet increase exercise weight loss discussed with the patient return in 1 year or p.r.n. Orders: Orders Comprehensive Hanna. Panel Fast Today Z00.00 - Encounter for general adult medical examination without abnormal findings, Z.419 - Encounter for gynecological examination (general) (routine) without abnormal findings Lipid Panel Today Z00.00 - Encounter for general adult medical examination without abnormal findings, Z.419 - Encounter for gynecological examination (general) (routine) without abnormal findings Complete Blood Count Auto Diff Today Z00.00 - Encounter for general adult medical examination without abnormal findings, Z01.419 - Encounter for gynecological examination (general) (routine) without abnormal findings TSH reflex Free T4 Today Z00.00 - Encounter for general adult medical examination without abnormal findings, Z01.419 - Encounter for gynecological examination (general) (routine) without abnormal findings UA w Microscopic Today Z00.00 - Encounter for general adult medical examination without abnormal findings, Z01.419 - Encounter for gynecological examination (general) (routine) without abnormal findings Hemoglobin A1c Today R73.9 - Hyperglycemia, unspecified
[2024-01-29 08:22] VITALS: BP 110/76; PULSE 75; O2SAT 100; BMI 51.0
== END 2024-01-29 09:13 | disposition home or self-care (01) ==
PROVIDERS: PCP Internal Medicine; Visit Provider Internal Medicine
DX: Z01.419 Encounter for gynecological examination (general) (routine) without abnormal findings (principal); Z00.00 Encounter for general adult medical examination without abnormal findings; R73.9 Hyperglycemia, unspecified

== ENCOUNTER → 2024-01-29 08:14 | Outpatient (BNVA) | payer BC, SELFPAY | PROVIDERS: PCP Internal Medicine; Visit Provider Internal Medicine | DX: Z00.00 Encounter for general adult medical examination without abnormal findings (principal); R73.9 Hyperglycemia, unspecified | CPT/HCPCS: 96127 ==

== ENCOUNTER 2024-01-29 09:14 | Outpatient (REF) | payer BC, SELFPAY ==
[2024-01-29 13:20] LABS: MANUAL DIFF FLAG NO
[2024-01-29 13:24] LABS: Appearance Urine Turbid; Color Urine Yellow; Glucose Urine UA Negative (Negative); Leukocyte Esterase Urine Small (1+) (Negative); Nitrite Urine Negative (Negative); Specific Gravity - Urine 1.025 (1.005-1.025); UMIC TRIGGER UA YES; Urine Blood Large (3+) (Negative); Urine Ketones Negative (Negative); Urine Protein Negative (Neg-Trace)
[2024-01-29 13:37] LABS: Basophils Percent Auto 0.4 % (0-2); Eosinophils Percent Auto 0.3 % (0-4); Hematocrit 44.6 % (37.0-47.0); Hemoglobin 14.5 g/dl (12.0-16.0); Imm Gran Abs Auto 0.02 X10*3/uL (0.00-0.03); Imm Gran Pct Auto 0.3 % (0.0-0.4); Lymphocytes Absolute Auto 2.2 X10*3/uL (1.2-4.9); Lymphocytes Percent Auto 31.8 % (20-40); Mean Corpuscular HGB Conc 32.5 g/dl (31.0-35.0); Mean Corpuscular Hemoglobin 29.5 pg (27.0-33.0); Mean Corpuscular Volume 90.8 fL (80.0-98.0); Mean Platelet Volume 10.3 fL (9.4-12.3); Monocytes Absolute Auto 0.5 X10*3/uL (0.1-1.2); Monocytes Percent Auto 6.8 % (2-11); Neutrophils Absolute Auto 4.3 x10*3/uL (2.0-8.3); Neutrophils Percent Auto 60.4 % (45-73); Platelet Count 339 X10*3/uL (160-400); Red Blood Count 4.91 X10*6/uL (4.20-5.50); Red Cell Distribution Width 13.2 % (11.0-16.0); White Blood Count 7.1 X10*3/uL (4.8-10.8)
[2024-01-29 13:43] LABS: Estimated Average Glucose 105 mg/dL; Hemoglobin A1C 129.7765 umol/L; Hemoglobin A1c % 5.3 % (<6.0)
[2024-01-29 13:44] LABS: Bacteria Urine 2+ (None Seen); Hyaline Casts Urine 0-2 /LPF (0-2); Squamous Epithelial Cell Urine >20 /HPF (0-2)
[2024-01-29 14:20] LABS: Alanine Aminotransferase 20 U/L (0-31); Albumin Level 4.1 g/dL (3.5-5.0); Alkaline Phosphatase 82 U/L (39-117); Aspartate Amino Transferase 23 U/L (5-31); Bilirubin Total 0.3 mg/dL (0.0-1.0); Blood Urea Nitrogen 14 mg/dL (9-16); Calcium 9.6 mg/dL (8.4-10.2); Cholesterol 162 mg/dL (<200); Estimated Glomerular Filt Rate > 60; Glucose Fasting 114 mg/dL (60-99); HDL Cholesterol 59 mg/dL (>40); LDL Cholesterol Calculated 88 mg/dL (<100); TSH reflex Free T4 0.95 uIU/mL (0.32-4.0); Total Protein 7.2 g/dL (6.5-8.0); Triglycerides 76 mg/dL (<150)
[2024-01-29 14:34] LABS: Anion Gap 8 (12-20); Carbon Dioxide 29 mmol/L (22-29); Chloride 105 mmol/L (96-108); Potassium 4.3 mmol/L (3.3-5.1); Sodium 138 mmol/L (135-145)
== END 2024-01-29 09:15 | disposition home or self-care (01) ==
LOC: HO.HMGCLDS 09:14
PROVIDERS: PCP Internal Medicine; Visit Provider Internal Medicine
DX: Z00.00 Encounter for general adult medical examination without abnormal findings (principal); R73.9 Hyperglycemia, unspecified
CPT/HCPCS: 36415; 80053; 80061; 81001; 83036; 84443; 85025

== ENCOUNTER 2024-09-06 13:16 | Outpatient (AMB) | payer BC, SELFPAY ==
[2024-09-06 13:40] VITALS: BP 120/76; PULSE 91; RESP 18; TEMP 36.8; O2SAT 97; BMI 52.3
--- NOTE | 2024-09-06 13:40 | A.OFFPC_ITS ---
Vital Signs 09/06/24 13:40 Height 5 ft Weight 268 lb BMI 52.3 BP 120/76 Blood Pressure Location Lt brachial Position Sitting Respiration 18 Pulse 91 Pulse Source Pulse Oximeter Temp 98.2 F Temp Source Oral Pulse Oximetry (%) 97 Oxygen Delivery Method Room Air Intake Visit Reasons: Discuss weight loss options Intake Note: Pt is here today for a follow up visit. Allergies amoxicillin [AMOXICILLIN] Allergy (Unknown, Verified 09/06/24 13:46) HIVES penicillin V Allergy (Unknown, Verified 09/06/24 13:46) hives Penicillins [PCN] Allergy (Unknown, Verified 09/06/24 13:46) HIVES Medication List - Last Reconciled 09/06/24 by Bridgette Del Rio MD epinephrine IM levonorgestrel (Mirena) intrauterine Zepbound (tirzepatide (weight loss)) 2.5 mg (0.5 mL) subcut QWEEK NS Tobacco use date assessed: 09/06/24 Dental Screening Dental Screen Date: 09/06/24 Did you have a dental visit in the last 12 months?: Yes Did you have a dental problem in the last 6 months where you did not have access to dental care?: No Was dental information given to patient?: Patient has dentist HPI Discuss weight loss options HPI Details Pt presents to discuss obesity. She has been decreasing caloric intake increasing physical activity to try to lose weight the last 6 months uns uccessfully. She has been using omada system for 1 year with monitoring on her physical activity and caloric intake. Patient is interested in trying GLP 1 agonist [facility] Medical History (Updated 09/06/24 @ 16:00 by Bridgette Del Rio MD) Cervical cancer screening Obesity, morbid, BMI 40.0-49.9 Hyperglycemia Surgical History Hx of plastic surgery Family History Father Hypertension Mental health disorder Mother No problems noted. Maternal Grandmother Breast cancer Social History Housing: House Alcohol intake: current Alcohol intake frequency: holidays/special occasions only Patient Tobacco Use Status: Never used Tobacco (10 years ago) e-Cigarette/Vaping Use: Never Used service: No Current occupational status: employed Cognitive needs: No Hearing needs: No Vision needs: Yes Female Reproductive History Menstrual Age of Menarche: 14 Questionnaire PHQ-9 Over the last 2 weeks, how often have you been bothered by any of the following problems? 1. Little interest or pleasure in doing things: not at all 2. Feeling down, depressed, or hopeless: not at all 3. Trouble falling or staying asleep, or sleeping too much: several days 4. Feeling tired or having little energy: several days 5. Poor appetite or overeating: not at all 6. Feeling bad about yourself - or that you are a failure or have let yourself or your family down: not at all 7. Trouble concentrating on things, such as reading the newspaper or watching television: not at all 8. Moving or speaking so slowly that other people could have noticed. Or the opposite - being so fidgety or restless that you have been moving around a lot more than usual: not at all 9. Thoughts that you would be better off or of hurting yourself in some way: not at all Total score: 2 Depression Screening Interpretation: Negative Depression Screening Done: Yes 70881 - PHQ-9 Billing: Yes Source: Developed by Drs. Chris Braxton, Cynthia Enriquez, Andrea Sheikh and colleagues, with an educational ayo from [employer]. Thrive Questionnaire Date Thrive assessed: 09/06/24 I am a: Patient What is your living situation today?: I have a steady place to live Within the past 12 months, did the food you bought not last and you didn't have the money to get more?: Never true Within the past 12 months, did you worry whether your food would run out before you got money to buy more?: Never true Do you have trouble paying for medicines?: No Do you have trouble getting transportation to medical appointments?: No Do you have trouble paying your heating and electricity bill?: No Do you have trouble taking care of your child, family member or friend?: No Do you have trouble with day-to-day activities such as bathing, preparing meals, shopping, managing finances, etc.?: No Are you currently unemployed and looking for a job?: No Are you interested in more education?: No Please select the resources that you would like help with: None Currently or been in a relationship where the following occur: No concerns reported THRIVE Score: 0 AUDIT C Alcohol Use Questionnaire (AUDIT-C) 1. How often do you have a drink containing alcohol?: 4 or more times a week 2. How many drinks containing alcohol do you have on a typical day when you are drinking?: 3 or 4 3. How often do you have six or more drinks on one occasion?: Less than monthly Total Score: 6 GONZALO-7 AMB Questionnaire GONZALO-7 Date GONZALO - 7 assessed: 09/06/24 Feeling nervous, anxious, or on edge: 1 = Several days Not being able to stop or control worryin = Several days Worrying too much about different things: 1 = Several days Trouble relaxin = Not at all Being so restless that it is hard to sit still: 0 = Not at all Becoming easily annoyed or irritable: 1 = Several days Feeling afraid as if something awful might happen: 0 = Not at all Total GONZALO-7 score (0-4 normal; 5-9 mild; 10-14 moderate; 15-21 severe): 4 Source: Developed by Drs. Chris Braxton, Cynthia Enriquez, Andrea Sheikh and colleagues, with an educational ayo from [employer]. GONZALO-7 Assessment Billing GONZALO-7 Assessment Tool: GONZALO-7 Assessment 24485 Review of Systems Const All systems reviewed & are unremarkable except as noted in HPI and below ENT Reports no additional complaints Card Reports no additional complaints Resp Reports no additional complaints GI Reports no additional complaints Reports no additional complaints Physical exam (Primary Care) Vital Signs: Last Vital Signs Temp 98.2 F 09/06/24 13:40 Pulse 91 09/06/24 13:40 Resp 18 09/06/24 13:40 BP 120/76 09/06/24 13:40 Pulse Ox 97 09/06/24 13:40 Oxygen Delivery Method Room Air 09/06/24 13:40 BMI result Body Mass Index 52.3 Tobacco/Smoking Status: Tobacco use Status Tobacco use date assessed 09/06/24 09/06/24 13:47 Patient Tobacco Use Status Never used Tobacco (10 years 09/06/24 13:47 ago) e-Cigarette/Vaping Use Never Used 09/06/24 13:40 PHQ-9: PHQ-9 Score PHQ-9: Total score 2 09/06/24 13:47 Depression Screening Interpretation: Negative Thrive Assessment: Date of Thrive Assessment Date Thrive assessed 09/06/24 09/06/24 13:47 Currently or been in a relationship where the following occur: No concerns reported Const General: no acute distress HENMT Head: Yes normal to inspection Neck Neck: Yes supple Resp Effort & Inspection: normal respiratory effort Auscultation: clear to auscultation bilaterally Cardio Rhythm: regular rhythm Heart sounds: S1 normal heart sound present and S2 normal heart sound present Coding Level of Care Code Est Pt Level 3 (07601) Diagnoses Obesity, morbid, BMI 40.0-49.9 E66.01 Additional Codes GONZALO-7 Assessment Billing - GONZALO-7 Assessment Tool: GONZALO-7 Assessment 90520 ([id number]) PHQ-9 - 46415 - PHQ-9 Billing: Yes ([id number]) Assessment & Plan Assessment & Plan (1) Obesity, morbid, BMI 40.0-49.9: Comment: BMI 52.3 08/2024 Code(s): E66.01 - Morbid (severe) obesity due to excess calories Category: Medical Plan: DECREASING CALORIC INTAKE INCREASING PHYSICAL ACTIVITY DISCUSSED WITH THE PATIENT. ZEPBOUND 2.5 MG WEEKLY WILL BE STARTED. Side effects discussed with the patient. After month the dose can be increased or continue the same depending on patient's side effects. Patient will follow-up in 3 months to monitor her weight Medications: New Zepbound (tirzepatide (weight loss)) 2.5 mg (0.5 mL) subcut QWEEK 2 mL 0RF NS
--- OUTSIDE RECORDS SUMMARY | 2024-09-06 14:48 | XMS_ITS | Encounter Summary ---
Author Organization [facility] Address [address] [place] [id number] Phone Care Team Providers Care Wood Finisher Name Role Phone Keya Mcclellan MD Primary Care Provider [phone] Encounter Details Date Type Department Care Team (Late st Contact Info) Description 08/23/2017 Conversion Encounter [facility] [address] [place] [address] Keya Mcclellan MD [address] [place] [address] Social History Tobacco Use Types Packs/Day Years Used Date Smoking Tobacco: Never Assessed Comments Unknown Sex and Gender Information Value Date Recorded Sex Assigned at Not on file Legal Sex Female 6:20 PM EDT Gender Identity Not on file Sexual Orientation Not on file documented as of this encounter Plan of Treatment Not on file documented as of this encounter Visit Diagnoses Not on filedocumented in this encounter Care Teams Wood Finisher Relationship Specialty Start Date End Date Keya Mcclellan MD [address] [place] [address] PCP - General 08/12/17 05/17/24 documented as of this encounter
== END 2024-09-06 14:29 | disposition home or self-care (01) ==
LOC: HO.HMCC 13:17
PROVIDERS: PCP Internal Medicine; Visit Provider Internal Medicine
DX: E66.01 Morbid (severe) obesity due to excess calories (principal); Z68.43 Body mass index [BMI] 50.0-59.9, adult

== ENCOUNTER → 2024-09-06 13:16 | Outpatient (BNVA) | payer BC, SELFPAY | PROVIDERS: PCP Internal Medicine; Visit Provider Internal Medicine | DX: E66.01 Morbid (severe) obesity due to excess calories (principal); Z68.43 Body mass index [BMI] 50.0-59.9, adult | CPT/HCPCS: 96127 ==

== ENCOUNTER 2024-12-07 10:31 | Outpatient (AMB) | payer BC, SELFPAY ==
[2024-12-07 10:34] VITALS: BP 106/68; PULSE 85; RESP 18; TEMP 36.7; O2SAT 96; BMI 49.6
--- NOTE | 2024-12-07 10:34 | A.OFFPC_ITS ---
Vital Signs 12/07/24 10:34 Height 5 ft Weight 254 lb BMI 49.6 BP 106/68 Blood Pressure Location Lt brachial Position Sitting Respiration 18 Pulse 85 Pulse Source Pulse Oximeter Temp 98.0 F Temp Source Oral Pulse Oximetry (%) 96 Oxygen Delivery Method Room Air Intake Visit Reasons: 3 months f/up Intake Note: Pt is here today for 3 months follow up visit on weight loss. Allergies amoxicillin (AMOXICILLIN) Allergy (Unknown, Verified 12/07/24 10:35) HIVES penicillin V Allergy (Unknown, Verified 12/07/24 10:35) hives Penicillins (PCN) Allergy (Unknown, Verified 12/07/24 10:35) HIVES Medication List - Last Reconciled 12/07/24 by Bridgette Del Rio MD epinephrine IM levonorgestrel (Mirena) intrauterine Zepbound (tirzepatide (weight loss)) 7.5 mg (0.5 mL) subcut QWEEK NS Tobacco use date assessed: 12/07/24 Dental Screening Dental Screen Date: 09/06/24 HPI 3 months f/up HPI Details Pt presents for f/u weight loss program. She has been taking Zepbound 5 mg weekly for 2 months and lost total of 20 lb. Patient has been tolerating medication well. She has been eating well-balanced diet, decreasing caloric intake and started exercising at least twice a week. [facility], [facility] Medical History Cervical cancer screening Obesity, morbid, BMI 40.0-49.9 Hyperglycemia Surgical History Hx of plastic surgery Family History Father Hypertension Mental health disorder Mother No problems noted. Maternal Grandmother Breast cancer Social History Housing: House Alcohol intake: current Alcohol intake frequency: holidays/special occasions only Patient Tobacco Use Status: Never used Tobacco (10 years ago) e-Cigarette/Vaping Use: Never Used service: No Current occupational status: employed Cognitive needs: No Hearing needs: No Vision needs: Yes Female Reproductive History Menstrual Age of Menarche: 14 Questionnaire Thrive Questionnaire Date Thrive assessed: 08/30/24 I am a: Patient What is your living situation today?: I have a steady place to live Within the past 12 months, did the food you bought not last and you didn't have the money to get more?: Never true Within the past 12 months, did you worry whether your food would run out before you got money to buy more?: Never true Do you have trouble paying for medicines?: No Do you have trouble getting transportation to medical appointments?: No Do you have trouble paying your heating and electricity bill?: No Do you have trouble taking care of your child, family member or friend?: No Do you have trouble with day-to-day activities such as bathing, preparing meals, shopping, managing finances, etc.?: No Are you currently unemployed and looking for a job?: No Are you interested in more education?: No Please select the resources that you would like help with: None Currently or been in a relationship where the following occur: No concerns reported THRIVE Score: 0 GONZALO-7 AMB Questionnaire GONZALO-7 Date GONZALO - 7 assessed: 09/06/24 Source: Developed by Drs. Chris Braxton, Cynthia Enriquez, Andrea Sheikh and colleagues, with an educational ayo from [employer]. Review of Systems Const All systems reviewed & are unremarkable except as noted in HPI and below Card Reports no additional complaints Resp Reports no additional complaints GI Reports no additional complaints Reports no additional complaints Physical exam (Primary Care) Vital Signs: Last Vital Signs Temp 98.0 F 12/07/24 10:34 Pulse 85 12/07/24 10:34 Resp 18 12/07/24 10:34 BP 106/68 12/07/24 10:34 Pulse Ox 96 12/07/24 10:34 Oxygen Delivery Method Room Air 12/07/24 10:34 BMI result Body Mass Index 49.6 Tobacco/Smoking Status: Tobacco use Status Tobacco use date assessed 12/07/24 12/07/24 10:39 Patient Tobacco Use Status Never used Tobacco (10 years 12/07/24 10:39 ago) e-Cigarette/Vaping Use Never Used 12/07/24 10:34 Thrive Assessment: Date of Thrive Assessment Date Thrive assessed 08/30/24 12/07/24 10:34 Currently or been in a relationship where the following occur: No concerns re ported HENMT Head: Yes normal to inspection Face and sinus: Yes normal facial exam Eyes General: appearance normal, both eyes and all related structures Neck Neck: Yes supple Resp Effort & Inspection: normal respiratory effort Auscultation: clear to auscultation bilaterally Cardio Rhythm: regular rhythm Heart sounds: S1 normal heart sound present and S2 normal heart sound present Coding Level of Care Code Est Pt Level 3 (58412) Diagnoses Obesity, morbid, BMI 40.0-49.9 E66.01 Assessment & Plan Assessment & Plan (1) Obesity, morbid, BMI 40.0-49.9: Comment: BMI 52.3 08/2024 Code(s): E66.01 - Morbid (severe) obesity due to excess calories Category: Medical Plan: Increase Zepbound to 7.5 mg weekly. Continue increasing physical activity decreasing caloric intake eating well-balanced diet. Patient will follow-up in 3 months with a fasting labs before Orders: Orders Comprehensive [place]. Panel Fast 3 Months E66.01 - Morbid (severe) obesity due to excess calories, R73.9 - Hyperglycemia, unspecified Complete Blood Count Auto Diff 3 Months E66.01 - Morbid (severe) obesity due to excess calories, R73.9 - Hyperglycemia, unspecified Lipid Panel 3 Months E66.01 - Morbid (severe) obesity due to excess calories, R73.9 - Hyperglycemia, unspecified TSH reflex Free T4 3 Months E66.01 - Morbid (severe) obesity due to excess calories, R73.9 - Hyperglycemia, unspecified UA w Microscopic 3 Months E66.01 - Morbid (severe) obesity due to excess calories, R73.9 - Hyperglycemia, unspecified Medications: New Zepbound (tirzepatide (weight loss)) 7.5 mg (0.5 mL) subcut QWEEK 2 mL 1RF NS Discontinued Zepbound (tirzepatide (weight loss)) Discontinued Reason: Doctor's Order 5 mg (0.5 mL) subcut QWEEK 2 mL 1RF NS
--- OUTSIDE RECORDS SUMMARY | 2024-12-07 12:18 | XMS_ITS | Clinical Summary ---
Author Organization [facility] Address [address] [place] [address] Care Team Providers Care Process Control Operator Name Role Phone Unavailable Primary Care Provider Unavailabl e Social History Tobacco Use Types Packs/Day Years Used Date Smoking Tobacco: Never Assessed Comments Unknown Sex and Gender Information Value Date Recorded Sex Assigned at Not on file Legal Sex Female 10:08 AM EST Gender Identity Not on file Sexual Orientation Not on file Plan of Treatment Health Maintenance Due Date Last Done Comments DTaP,Tdap,and Td Vaccines (1 - Tdap) 12/06/2011 Hepatitis B Vaccines (1 of 3 - 19+ 3-dose series) 12/06/2011 Cervical Cancer Screening: P ap Smear 2013 HIV Screening 03/09/2022 Hepatitis C Screening 03/09/2022 Social Influencers of Health Screening 03/09/2022 Depression Screening 04/06/2024 COVID-19 Vaccine (2023-2 5 season) 2024 Influenza Vaccine (#1) 2024 HIB Vaccines Aged Out No longer eligi ble based on patient's age to complete this topic HPV Vaccines Aged Out No longer eligi ble based on patient's age to complete this topic Hepatitis A Vaccines Aged Out No long er eligible based on patient's age to complete this topic IPV Vaccines Aged Out No longer eligi ble based on patient's age to complete this topic MMR Vaccines Aged Out No longer eligi ble based on patient's age to complete this topic Meningococcal ACWY Vaccine Aged Out N o longer eligible based on patient's age to complete this topic Meningococcal B Vaccine Aged Out No l onger eligible based on patient's age to complete this topic Pneumococcal Vaccine: Pediat rics (0 to 5 Years) and At-Risk Patients (6 to 49 Years) Aged Out No longer eligible b ased on patient's age to complete this topic RSV Immunization Patients Un donna 20 months Aged Out No longer eligible b ased on patient's age to complete this topic Varicella Vaccines Aged Out No longer eligible based on patient's age to complete this topic
--- OUTSIDE RECORDS SUMMARY | 2024-12-07 12:18 | XMS_ITS | Clinical Summary ---
Author Organization [facility] Address [address] [place] [phone] Phone Care Team Providers Care Grape Picker Name Role Phone Unavailable Primary Care Provider Unavailabl e Immunizations Immunization Administration Dates Next Due DTaP 11/10/1997, 5,06/12/1993,04/11,02/05/1993 HPV, Quadrivalent 06/06/2009,11/30/2008,10/06/19 09 Hep B, ped/adol 09/06/1993,02/05/1993,1992 Hib (PRP-T) 03/10/1994, 4,04/11/1993,02/05 IPV 11/10/1997, 5,04/11/1993,02/05 MMR 11/10/1997,03/10/1994 Meningococcal Conj (Menactra) MCV4P 10/08/2006 Td (adult) (Tenivac), 5 Lf t etanus toxoid, PF, adsorbed 02/13/2003 Tdap 10/05/2008 Varicella 10/05/2008,11/10/1997 Family History Relation Name Status Comments Father Alive OCD - house denzel nd (aid comes M-F 2 hrs a day), Iirritable bowel, scoliosis, depression Maternal Grandfather smoked, emphysema Mother Alive overwgt Other Siblings: broth er with degenerative disc disease age 27 in 2008, heart is wired wrong Paternal Grandfather heart p roblems, kidney failure, was on dialysis, HTN Paternal Grandmother Alive psych p roblems, eye removed, depressed Social History Tobacco Use Types Packs/Day Years Used Date Smoking Tobacco: Never Assessed Comments Unknown Sex and Gender Information Value Date Recorded Sex Assigned at Not on file Legal Sex Female 6:20 PM EDT Gender Identity Not on file Sexual Orientation Not on file Last Filed Vital Signs Vital Sign Reading Time Taken Comments Blood Pressure 110/64 12/17/2009 12:00 AM EDT Pulse - - Temperature 37 C (98.6 F) 09/25/2010 12:00 AM EDT Respiratory Rate - - Oxygen Saturation - - Inhaled Oxygen Concentration - - Weight 62.1 kg (137 lb) 09/25/2010 12:00 AM EDT Height 151.8 cm (4' 11.75 ) 12/17/2009 12:00 AM EDT Body Mass Index - - Plan of Treatment Health Maintenance Due Date Last Done Comments DTaP,Tdap,and Td Vaccines (7 - Td or Tdap) 10/05/2018 10/05/2008, 02/13/2003, 11/10/1997, Additional history exists COVID-19 Vaccine ( season) 2023 Influenza Vaccines (#1) 2024 Hepatitis B Vaccines Completed 09/06/1993, 02/05/1993, 1992 HIB Vaccines Completed 03/10/1994, 12/1993, 04/11/1993, Additional history exists IPV Vaccines Completed 11/10/1997, 11/1994, 04/11/1993, Additional history exists MMR Vaccines Completed 11/10/1997, 03/10/1994 Meningococcal Vaccine Aged Out 10/08/2006 No reuben yuliet eligible based on patient's age to complete this topic Varicella Vaccines Completed 10/05/2008, 11/10/1997 HPV Vaccines Completed 06/06/2009, 11/05, 10/05/2008 Hepatitis A Vaccines Aged Out No long er eligible based on patient's age to complete this topic Men B Vaccine Aged Out No longer elig ible based on patient's age to complete this topic Pneumococcal Vaccine Aged Out No long er eligible based on patient's age to complete this topic
--- OUTSIDE RECORDS SUMMARY | 2024-12-07 12:18 | XMS_ITS | Encounter Summary ---
Author Organization [facility] Address [address] [place] [phone] Phone Care Team Providers Care Radial Router Operator Name Role Phone Keya Mcclellan MD Primary Care Provider Encounter Details Date Type Department Care Team (Late st Contact Info) Description 08/23/2017 Conversion Encounter [facility] [address] [place] [address] Keya Mcclellan MD [address] [place] [address] Social History Tobacco Use Types Packs/Day Years [...] on filedocumented in this encounter Care Teams Radial Router Operator Relationship Specialty Start Date End Date Keya Mcclellan MD [address] [place] [address] PCP - General 08/12/17 05/17/24 documented as of this encounter
== END 2024-12-07 13:00 | disposition home or self-care (01) ==
LOC: HO.HMCC 10:31
PROVIDERS: PCP Internal Medicine; Visit Provider Internal Medicine
DX: E66.01 Morbid (severe) obesity due to excess calories (principal); Z68.42 Body mass index [BMI] 45.0-49.9, adult

== ENCOUNTER 2025-01-24 09:01 | Outpatient (AMB) | payer BC, SELFPAY ==
--- NOTE | 2025-01-24 09:02 | A.OFFVIS_ITS ---
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 Department Manager: Dairy Department Manager Present ([place]) Accompanied by: Self / Same As Patient Allergies amoxicillin (AMOXICILLIN) Allergy (Unknown, Verified 01/24/25 09:23) HIVES penicillin V Allergy (Unknown, Verified 01/24/25 09:23) hives Penicillins (PCN) Allergy (Unknown, Verified 01/24/25 09:23) HIVES Medication List - Last Reconciled 01/24/25 by Ling Olvera CNM epinephrine IM levonorgestrel (Mirena) intrauterine Zepbound (tirzepatide (weight loss)) 7.5 mg (0.5 mL) subcut QWEEK NS Is last menstrual period known: No Post menopausal: No Patient : No HPI HPI 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 She sometimes gets a little bit of light spotting that she sort of interprets as a period but it is harder to keep track of recently. She still needs and wants the Mirena for control this is her 2nd 1 she says replacing it was challenging and painful the last time the string was not visible and they had to use a hook to retrieve it. She does want another 1. She asked her primary care provider for help with weight loss and was prescribed Zepbound in August and she has lost about 30 lb and she feels better she says it makes her a little bit nauseous so she does not eat very much in eats very light.. She has a new job she does work a lot from home but it is on the computer all the time she does have a treadmill and she is thinking about getting a standing desk so she could use it while she is on the computer. She has no plans for childbearing no close family history of breast cancers so far she knows. [facility] Medical History Cervical cancer screening Obesity, morbid, BMI 40.0-49.9 Hyperglycemia Surgical History Hx of plastic surgery Family History Father Hypertension Mental health disorder Mother No problems noted. Maternal Grandmother Breast cancer Social History Housing: House Alcohol intake: current Alcohol intake frequency: holidays/special occasions only Patient Tobacco Use Status: Never used Tobacco e-Cigarette/Vaping Use: Never Used service: No Current occupational status: employed Cognitive needs: No Hearing needs: No Vision needs: Yes Female Reproductive History Menstrual Age of Menarche: 14 control method: progestin IUCD (Mirena ) Total pregnancies: 1 Ab induced: 1 Date of last pap smear: 07/15/23 (negative pap smear negative hpv ) Physical Exam Vital Signs: Last Vital Signs BP 108/72 01/24/25 09:08 BMI result Body Mass Index 47.8 Const General: healthy appearing, comfortable, no acute distress, well developed and alert Nutritional Appearance: average body habitus Orientation/consciousness: patient oriented x3 Limitations: no limitations HEENT Head: Yes normocephalic Neck Neck: Yes normal visual inspection Chest Chest palpation & inspection: normal inspection of the chest Breast/axilla inspection: normal inspection of the breasts and normal inspection of the axillae Breast/axilla palpation: normal palpation of the breasts and normal palpation of the axillae Resp Effort & Inspection: normal respiratory effort GI Inspection: Yes normal to inspection, No Abdominal wall edema and No distended Palpation (GI): Soft to palpation and nontender Other: External exam within normal limits vagina pink clear no abnormal discharge testing for GC chlamydia trich BV and yeast done in anticipation of future Mirena switch out procedure. Cervix nulliparous pink firm very tightly closed long and firm and thick Mirena string is visible about 1 cm. Cervix probed with Cytobrush 2 test if it would allow entry of tip of Cytobrush and it did. Uterus difficult to palpate secondary to adipose but mobile and nontender adnexa nontender good muscle tone. General: Yes bladder normal to palpation External Female Exam: normal external appearance and normal appearance of the urethra Speculum Exam - Vagina: normal appearance of the vagina, normal palpation and normal vaginal discharge Speculum Exam - Cervix: normal appearance of the cervix, normal palpation and nontender Bimanual exam- vagina & uterus: normal bimanual exam, normal palpation, uterine size normal, bladder normal to palpation, consistency normal, normal palpation, uterine mobility normal, uterine shape normal, No Cervical tenderness present, non-tender and no cervical motion tenderness Bimanual Exam- Adnexa, other: normal adnexae, no masses, normal and No adnexal tenderness Neuro General: patient oriented x3 Assessment & Plan Assessment & Plan (1) Normal pelvic exam: Comment: broadcast 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 Code(s): Z12.4 - Encounter for screening for malignant neoplasm of cervix Category: Medical (4) Encounter for routine checking of intrauterine contraceptive device (IUD): Comment: It is past due for replacement. Patient does need it for contraception. Patient is nulliparous previous replacement was painful and challenging. Light spotting ?menses? not predictable Cervix very firm. pre dosing with misoprostol planned. Patient abstaining until replacement. Code(s): Z30.431 - Encounter for routine checking of intrauterine contraceptive device Category: Medical (5) Obesity, morbid, BMI 40.0-49.9: Comment: BMI 52.3 08/2024 Code(s): E66.01 - Morbid (severe) obesity due to excess calories Category: Medical Plan -----Discussed in this visit the following: healthy balanced diet, regular and consistent exercise, getting recommended health screens, doing the best she can for her particular health concerns, kegel exercises, pap smear screening and followup recommendations, mammography screening and SBE, normal changes in cycles in her life stage--- . Discussed her past experience with replacement and while the string is visible today her cervix is very very firm and she does not get predictable ?? menses that is even spotting. Given this discussed the option of pre dosing with misoprostol placed vaginally 6 hours prior to Mirena removal and insertion of new one, and also again two hours before. All is to soften the cervix to aid in the removal and insertion we will aim to try more less in a couple of weeks because she believes she had a little spotting 1-2 weeks ago, that may have represented a light menses. She no longer gets premenstrual symptoms h owever, that would help her nail down what is a menses. Congratulated on her hard efforts to lose weight and reinforced how important it is for her health. Dietary suggestions discussed encouraged to consider the standing desk or a bedside table. Mammograms will start at age 40 she is not due for Pap and she has never had an abnormal one. She is following up with her primary every 3 months now. Medications: New misoprostol [address] one tab 6 hrs prior to iud insertion, if no or minimal cramping, repeat dose 2 hours before planned insertion, on day 2 of menses. 2 tabs 0RF Coding Level of Care Code Est Pt Prev Care 18-39y(11896) Diagnoses Normal pelvic exam Z01.419 Well woman exam with routine gynecological exam Z01.419 Cervical cancer screening Z12.4 Encounter for routine checking of intrauterine contraceptive device (IUD) Z30.431 Obesity, morbid, BMI 40.0-49.9 E66.01
[2025-01-24 09:08] VITALS: BP 108/72; BMI 47.8
--- OUTSIDE RECORDS SUMMARY | 2025-01-24 09:40 | XMS_ITS | Encounter Summary ---
Author Organization [facility] Address [address] [place] [address] Phone Care Team Providers Care Java Programmer Name Role Phone Keya Mcclellan MD Primary Care Provider Encounter Details Date Type Department Care Team (Late st Contact Info) Description 08/23/2017 Conversion Encounter [facility] [address] [place] [address] Keya Mcclellan MD [address] [place] [address] Social History Tobacco Use Types Packs/Day Years [...] on filedocumented in this encounter Care Teams Java Programmer Relationship Specialty Start Date End Date Keya Mcclellan MD [address] [place] [address] PCP - General 08/12/17 05/17/24 documented as of this encounter
--- OUTSIDE RECORDS SUMMARY | 2025-01-24 09:40 | XMS_ITS | Clinical Summary ---
Author Organization [facility] Address [address] [place] [phone] Phone Care Team Providers Care Driver/Sales Workers Name Role Phone Unavailable Primary Care Provider [...] 10/05/2018 10/05/2008, 02/13/2003, 11/10/1997, Additional history exists Influenza Vaccines (#1) 2024 COVID-19 Vaccine ( season) 2024 Hepatitis B Vaccines Completed 09/06/1993, 02/05/1993, [...]
== END 2025-01-24 10:50 | disposition home or self-care (01) ==
LOC: HO.HWS 09:01
PROVIDERS: PCP Internal Medicine; Visit Provider Advanced Practice Midwife
DX: Z01.419 Encounter for gynecological examination (general) (routine) without abnormal findings (principal); Z30.431 Encounter for routine checking of intrauterine contraceptive device; E66.01 Morbid (severe) obesity due to excess calories; Z68.42 Body mass index [BMI] 45.0-49.9, adult
CPT/HCPCS: 99395; 99459

== ENCOUNTER 2025-01-24 09:01 | Outpatient (REF) | payer BC, SELFPAY ==
[2025-01-24 16:51] LABS: Bacterial Vaginosis PCR NEGATIVE (Negative); Candida Group PCR NOT DETECTED (Not Detect); Candida glab krusei PCR NOT DETECTED (Not Detect); Trichomonas vaginalis PCR NOT DETECTED (Not Detect)
[2025-01-24 17:23] LABS: CT PCR NOT DETECTED (Not Detect.); NG PCR NOT DETECTED (Not Detect.)
--- OUTSIDE RECORDS SUMMARY | 2025-01-24 18:58 | XMS_ITS | Clinical Summary ---
Author Organization [facility] Address [address] [facility] [place] [address] Care Team Providers Care Attending Urologist Name Role Phone Lindsay Krishnan DO Primary Care Pro vider Unavailable Allergies Active Allergy Reactions Severity Noted Date Comments Amoxicillin 07/01/2015 Penicillins 07/01/2015 Medications Medication Sig Dispensed Refills Start Date End Date Status azithromycin (ZITHROMAX) 250 MG tablet 2 PO today, then 1 PO daily 6 Tab 0 07/01/2015 Active Social History Tobacco Use Types Packs/Day Years Used Date Smoking Tobacco: Former Cigarettes Q uit: 04/06/2009 Alcohol Use Standard Drinks/Week Comments Not Asked 0 (1 standard drink = 0.6 oz pur e alcohol) Sex Assigned at Date Recorded Not on file Last Filed Vital Signs Vital Sign Reading Time Taken Comments Blood Pressure 102/60 07/01/2015 1:17 PM EDT Pulse 92 07/01/2015 1:17 PM EDT Temperature 36.7 C (98.1 F) 07/01/2015 1:17 PM EDT Respiratory Rate 12 07/01/2015 1:17 PM EDT Oxygen Saturation 99% 07/01/2015 1:17 PM EDT Inhaled Oxygen Concentration - - Weight 67.1 kg (148 lb) 07/01/2015 1:17 PM EDT Height 152.4 cm (5') 07/01/2015 1:17 PM EDT Body Mass Index 28.9 07/01/2015 1:17 PM EDT Plan of Treatment Health Maintenance Due Date Last Done Comments Covid-19 Vaccine (#1) 06/04/1993 TOBACCO CHECK/ADVISE 2010 BASELINE HEALTH EXAM 18-39 12/06/2011 DTAP/TDAP/TD (1 - Tdap) 12/06/2011 CHOLESTEROL SCREENING 2012 CERVICAL CANCER SCREENING 2013 BMI CHECK/ADVISE 04/06/2024 INFLUENZA (#1) 2024 PNEUMOCOCCAL VACCINE FOR HIGH RISK PATIENTS (#1) 12/05 Care Teams Attending Urologist Relationship Specialty Start Date End Date Lindsay Krishnan DO PCP - General Internal Medicine 06/30/15
--- OUTSIDE RECORDS SUMMARY | 2025-01-24 18:58 | XMS_ITS | Clinical Summary ---
Author Organization [facility] Address [address] [place] [phone] Phone Care Team Providers Care Portable Track Crew Chief Name Role Phone Unavailable Primary Care Provider [...]
--- OUTSIDE RECORDS SUMMARY | 2025-01-24 18:58 | XMS_ITS | Encounter Summary ---
Author Organization [facility] Address [address] [place] [address] Care Team Providers Care Dentistry Professor Name Role Phone Lindsay Krishnan DO Primary Care Pro vider Unavailable Encounter Details Date Type Department Care Team Description 05/01/2016 Release of Information Medical Records [address] [place] [address] Abstract, Provider Social History Tobacco Use Types Packs/Day Years Used Date Smoking Tobacco: Former Cigarettes Q uit: 04/06/2009 Alcohol Use Standard Drinks/Week Comments Not Asked 0 (1 standard drink = 0.6 oz pur e alcohol) Sex Assigned at Date Recorded Not on file documented as of this encounter Plan of Treatment Not on file documented as of this encounter Visit Diagnoses Not on filedocumented in this encounter Care Teams Dentistry Professor Relationship Specialty Start Date End Date Lindsay Krishnan DO PCP - General Internal Medicine 06/30/15 documented as of this encounter
--- OUTSIDE RECORDS SUMMARY | 2025-01-24 18:58 | XMS_ITS | Clinical Summary ---
Author Organization [facility] Address [address] [place] [address] Care Team Providers Care Glove Former Name Role Phone Unavailable Primary Care Provider [...] Cervical Cancer Screening: P ap Smear 2013 HPV Vaccines (1 - 3-dose SCD M series) 12/06/2019 Depression Screening 04/06/2024 COVID-19 Vaccine ( - 2023-2 5 season) 2024 Influenza Vaccine (#1) 2024 RSV Immunization Adult Patie nts (1 - 1-dose 75+ series) 12/06/2067 HIB Vaccines Aged Out No longer eligi [...]
--- OUTSIDE RECORDS SUMMARY | 2025-01-24 18:58 | XMS_ITS | Encounter Summary ---
Author Organization [facility] Address [address] [place] [address] Care Team Providers Care Grain Receiver Name Role Phone Lindsay Krishnan DO Primary Care Pro vider Unavailable Encounter Details Date Type Department Care Team Description 07/03/2015 Release of Information Medical Records [address] [place] [address] Abstract, Provider Social History Tobacco Use Types [...] on filedocumented in this encounter Care Teams Grain Receiver Relationship Specialty Start Date End Date Lindsay Krishnan DO PCP - General Internal Medicine 06/30/15 documented as of this encounter
--- OUTSIDE RECORDS SUMMARY | 2025-01-24 18:58 | XMS_ITS | Encounter Summary ---
Author Organization [facility] Address [address] [place] [phone] Phone Care Team Providers Care Voice Intercept Technician Name Role Phone Keya Mcclellan MD Primary Care Provider [phone] Encounter Details Date Type Department Care Team (Late st Contact Info) Description 08/23/2017 Conversion Encounter [facility] [address] [place] [address] Keya Mcclellan MD [address] [place] [address] Social History Tobacco Use Types Packs/Day Years [...] on filedocumented in this encounter Care Teams Voice Intercept Technician Relationship Specialty Start Date End Date Keya Mcclellan MD [address] [place] [address] PCP - General 08/12/17 05/17/24 documented as of this encounter
== END 2025-01-24 09:02 | disposition home or self-care (01) ==
LOC: HO.LNP 09:01
PROVIDERS: PCP Internal Medicine; Visit Provider Advanced Practice Midwife
DX: Z01.419 Encounter for gynecological examination (general) (routine) without abnormal findings (principal); Z30.431 Encounter for routine checking of intrauterine contraceptive device; E66.01 Morbid (severe) obesity due to excess calories; Z68.42 Body mass index [BMI] 45.0-49.9, adult; Z20.2 Contact with and (suspected) exposure to infections with a predominantly sexual mode of transmission
CPT/HCPCS: 81515; 87491; 87591

== ENCOUNTER 2025-02-07 10:56 | Outpatient (REF) | payer BC, SELFPAY ==
[2025-02-07 17:27] LABS: CT PCR NOT DETECTED (Not Detect.); NG PCR NOT DETECTED (Not Detect.)
== END 2025-02-07 10:57 | disposition home or self-care (01) ==
LOC: HO.LNP 10:56
PROVIDERS: PCP Internal Medicine; Visit Provider Obstetrics & Gynecology
DX: Z30.433 Encounter for removal and reinsertion of intrauterine contraceptive device (principal); Z20.2 Contact with and (suspected) exposure to infections with a predominantly sexual mode of transmission; Z32.02 Encounter for pregnancy test, result negative
CPT/HCPCS: 58300; 58301; 87491; 87591; J7298

== ENCOUNTER 2025-02-07 10:56 | Outpatient (AMB) | payer BC, SELFPAY ==
[2025-02-07 10:59] VITALS: BP 116/70; BMI 47.8
--- NOTE | 2025-02-07 10:59 | A.OFFVIS_ITS ---
Vital Signs 02/07/25 10:59 Height 5 ft Weight 245 lb BMI 47.8 BP 116/70 Intake Visit Reasons: IUD removal/insertion Fire Management Technician Required: No Information Interpreted: non-clinical & clinical Restaurant Operations Manager: Restaurant Operations Manager Present (Heather CALZADA) Accompanied by: Self / Same As Patient Allergies amoxicillin (AMOXICILLIN) Allergy (Unknown, Verified 02/07/25 11:05) HIVES penicillin V Allergy (Unknown, Verified 02/07/25 11:05) hives Penicillins (PCN) Allergy (Unknown, Verified 02/07/25 11:05) HIVES Is last menstrual period known: No (mirena) HPI Comments Details: Presenting for Mirena IUD removal and requesting new Mirena IUD insertion. Last Mirena IUD was inserted 9 years ago, last unprotected intercourse was 2 months ago [facility] Medical History Cervical cancer screening Obesity, morbid, BMI 40.0-49.9 Hyperglycemia Surgical History Hx of plastic surgery Family History Father Hypertension Mental health disorder Mother No problems noted. Maternal Grandmother Breast cancer Social History Housing: House Alcohol intake: current Alcohol intake frequency: holidays/special occasions only Patient Tobacco Use Status: Never used Tobacco e-Cigarette/Vaping Use: Never Used service: No Current occupational status: employed Cognitive needs: No Hearing needs: No Vision needs: Yes Female Reproductive History Menstrual Age of Menarche: 14 control method: progestin IUCD Review of Systems Const All systems reviewed & are unremarkable except as noted in HPI and below Physical Exam Vital Signs: Last Vital Signs BP 116/70 02/07/25 10:59 BMI result Body Mass Index 47.8 General: Yes no CVA tenderness External Female Exam: normal external appearance and normal appearance of the urethra Speculum Exam - Vagina: normal appearance of the vagina, normal palpation, no lesions and no masses Speculum Exam - Cervix: normal appearance of the cervix, normal palpation, no lesions, no masses and nontender Bimanual exam- vagina & uterus: normal bimanual exam, normal palpation, uterine size normal, normal palpation, uterine shape normal, No Cervical tenderness present and non-tender Bimanual Exam- Adnexa, other: normal adnexae Back/Spine/Pelvis Back: no CVA tenderness Office Procedures IUD Insert/Removal Details Details: The patient is presenting for Mirena IUD removal and IUD reinsertion. Her last menstrual period was within the last 5 days, Urine test was done in the office and was negative; All the contraindications were excluded. The following possible complications were discussed with the patient: Intrauterine , Ectopic , Sepsis, Pelvic Infection, Irregular B leeding and Amenorrhea, Perforation, Expulsion, Ovarian Cysts, Breast Cancer. The following adverse effects were discussed with the patient: alteration of menstrual bleeding pattern, including: unscheduled uterine bleeding decreased uterine bleeding increased scheduled uterine bleeding female genital tract bleeding ,amenorrhea , genital discharge , vulvovaginitis , breast pain , benign ovarian cyst and associated complications , dysmenorrhea , Gastrointestinal disorders abdominal/pelvic pain, headache/migraine , back pain , acne , depression Alternative options were discussed with the patient including but not limited: control pills, patch, NuvaRing, Depo-medroxyprogesterone acetate, Nexplanon, copper IUD, sterilization, vasectomy, others The procedure was explained in detail to patient , at the end patient signed the informed consent obtained. Alternative options were discussed with the patient The patient signed the consent and agreed with the plan; all questions answered. Urine test was done in the office and was negative Preop dx: Requesting Mirena IUD removal and Reinsertion Op: IUD Mirena removal and Mirena insertion Post op dx: same EBL= 10 cc Procedure: The patient was put in the dorsal lithotomy position a speculum was inserted in the vagina the IUD thread identified. Using a Carey clamp the thread was grasped and the IUD pulled out with no complications. A no touch technique was used throughout the procedure. A speculum was placed into vagina and cervix was cleaned with betadine). A tenaculum was placed. A plastic sound was advanced through the external and internal os until it reached the fundus of the uterus, the depth was 8 cm. The sound was then withdrawn. The IUD was loaded in a sterile manner and advanced into position. The string was visualized and cut to 3 cm. Tenaculum site hemostatic. All instruments removed from vagina. Patient tolerated the procedure well. NO complications were noted. Patient was instructed to call for fever over 100.4, significant pain unrelieved by Motrin, IUD expulsion, heavy bleeding, or abnormal discharge. In addition, the following clinical considerations were discussed with the patient to call for removal: A stroke or heart attack ,Very severe or migraine headaches ,Unexplained fever ,Yellowing of the skin or whites of the eyes, as these may be signs of serious liver problems , or suspected , Pelvic pain or pain during sex ,HIV positive seroconversion in herself or her partner , Possible exposure to sexually transmitted infections Unusual vaginal discharge or genital sores , severe vaginal bleeding or bleeding that lasts a long time, or if she misses a menstrual period, Inability to feel Mirena's threads Counseled the patient that the IUD does not protect against STI's, recommended use of condoms for the first 7 days post insertion and explained to the patient that condoms are recommended for patients at risk for sexually transmitted infections. Follow up appointment made for 4 weeks following insertion. Date of removal in no more than five years for DUB treatment and 8 years for contraception from today?s date was d/w patient. This note was generated with a voice recognition program. Some errors may have been overlooked during the review of this note. Sometimes these errors may affect the content or meaning of a given sentence. 82074-DYK Insertion 98339-INI Removal Procedure code (CPT) selection complete Office Meds Mirena 21 mcg/24 hr (up to 8 years) 52 mg intrauterine device Performing Provider: Janes Sauceda MD Performing Location: [facility] Documented (not given) by: Janes Sauceda MD on 02/07/25 11:35 Dose Route Admin Location Dispensed Lot Number Expiration Date [facility] Distribution Transformer Assembler 1 device intrauterine ea Total Dispensed Waste n/a n/a Assessment & Plan Assessment & Plan (1) Remove/insert IUD: Code(s): Z30.433 - Encounter for removal and reinsertion of intrauterine contraceptive device Category: Medical Plan: UPT done in the office was negative. GC/CT collected. Mirena IUD removed and new Mirena IUD inserted. See procedure note Orders: Orders CT NG by PCR Vag/Cerv Today Z30.433 - Encounter for removal and reinsertion of intrauterine contraceptive device AMB IUD Insertion/Removal - Practice Supplied Today Z30.433 - Encounter for removal and reinsertion of intrauterine contraceptive device Medications: New Mirena (levonorgestrel) 1 device intrauterine ONCE 1 ea 0RF IUD removal and reinsertion NS Z30.433 - Encounter for removal and reinsertion of intrauterine contraceptive device Coding Level of Care Code Procedure Only Diagnoses Remove/insert IUD Z30.433 CPT Codes Details - CPT: 27261-NUW Insertion ([id number]) Details - CPT: 13705-YUI Removal ([id number])
--- OUTSIDE RECORDS SUMMARY | 2025-02-07 13:13 | XMS_ITS | Clinical Summary ---
Author Organization [facility] Address [address] [place] [phone] Phone Care Team Providers Care Head Wood Grinder Name Role Phone Unavailable Primary Care Provider [...]
--- OUTSIDE RECORDS SUMMARY | 2025-02-07 13:13 | XMS_ITS | Encounter Summary ---
Author Organization [facility] Address [address] [place] [phone] Phone Care Team Providers Care Launching Pad Mechanic Name Role Phone Keya Mcclellan MD Primary Care Provider [phone] Encounter Details Date Type Department Care Team (Late st Contact Info) Description 08/23/2017 Conversion Encounter [facility] [address] [place] [address] Keya Mcclellan MD [address] [place] [address] Social History Tobacco Use Types Packs/Day Years [...] on filedocumented in this encounter Care Teams Launching Pad Mechanic Relationship Specialty Start Date End Date Keya Mcclellan MD [address] [place] [address] PCP - General 08/12/17 05/17/24 documented as of this encounter
== END 2025-02-07 11:35 | disposition home or self-care (01) ==
LOC: HO.HWS 10:56
PROVIDERS: PCP Internal Medicine; Visit Provider Obstetrics & Gynecology
DX: Z30.433 Encounter for removal and reinsertion of intrauterine contraceptive device (principal)
CPT/HCPCS: 58300; 58301

== ENCOUNTER 2025-03-15 09:41 | Outpatient (AMB) | payer BC, SELFPAY ==
--- NOTE | 2025-03-15 10:12 | MHC.PC.OV ---
Vital Signs 03/15/25 10:28 Height 5 ft Weight 236 lb BMI 46.1 BP 104/76 Blood Pressure Location Lt brachial Position Sitting Respiration 17 Pulse 85 Pulse Source Pulse Oximeter Pulse Oximetry (%) 95 Intake Visit Reasons: Follow up 3mo Intake Note: Pt is here today for 3 months follow up visit. Allergies amoxicillin (AMOXICILLIN) Allergy (Unknown, Verified 03/15/25 10:28) HIVES penicillin V Allergy (Unknown, Verified 03/15/25 10:28) hives Penicillins (PCN) Allergy (Unknown, Verified 03/15/25 10:28) HIVES Medication List - Last Reconciled 03/15/25 by Bridgette Del Rio MD epinephrine IM misoprostol [address] one tab 6 hrs prior to iud insertion, if no or minimal cramping, repeat dose 2 hours before planned insertion, on day 2 of menses. Zepbound (tirzepatide (weight loss)) 10 mg (0.5 mL) subcut QWEEK NS Tobacco use date assessed: 03/15/25 Dental Screening Dental Screen Date: 09/06/24 HPI Follow up 3mo HPI Details Patient presents for the follow-up of Zepbound treatment. She has been decreasing caloric intake increasing physical activity and lost 35 lb since starting the medication. Patient denies side effects. [facility] Medical History (Updated 03/15/25 @ 11:08 by Bridgette Del Rio MD) Annual physical exam Cervical cancer screening Obesity, morbid, BMI 40.0-49.9 Hyperglycemia Surgical History Hx of plastic surgery Family History Father Hypertension Mental health disorder Mother No problems noted. Maternal Grandmother Breast cancer Social History Housing: House Alcohol intake: current Alcohol intake frequency: holidays/special occasions only Patient Tobacco Use Status: Never used Tobacco e-Cigarette/Vaping Use: Never Used service: No Current occupational status: employed Cognitive needs: No Hearing needs: No Vision needs: Yes Female Reproductive History Menstrual Age of Menarche: 14 Questionnaire Thrive Questionnaire Date Thrive assessed: 08/30/24 I am a: Patient What is your living situation today?: I have a steady place to live Within the past 12 months, did the food you bought not last and you didn't have the money to get more?: Never true Within the past 12 months, did you worry whether your food would run out before you got money to buy more?: Never true Do you have trouble paying for medicines?: No Do you have trouble getting transportation to medical appointments?: No Do you have trouble paying your heating and electricity bill?: No Do you have trouble taking care of your child, family member or friend?: No Do you have trouble with day-to-day activities such as bathing, preparing meals, shopping, managing finances, etc.?: No Are you currently unemployed and looking for a job?: No Are you interested in more education?: No Please select the resources that you would like help with: None Currently or been in a relationship where the following occur: No concerns reported THRIVE Score: 0 GONZALO-7 AMB Questionnaire GONZALO-7 Date GONZALO - 7 assessed: 09/06/24 Source: Developed by Drs. Chris Braxton, Cynthia Enriquez, Andrea Sheikh and colleagues, with an educational ayo from [employer]. Review of Systems Const All systems reviewed & are unremarkable except as noted in HPI and below Card Reports no additional complaints Resp Reports no additional complaints GI Reports no additional complaints Reports no additional complaints Physical exam (Primary Care) Vital Signs: Last Vital Signs Pulse 85 03/15/25 10:28 Resp 17 03/15/25 10:28 BP 104/76 03/15/25 10:28 Pulse Ox 95 03/15/25 10:28 BMI result Body Mass Index 46.1 Tobacco/Smoking Status: Tobacco use Status Tobacco use date assessed 03/15/25 03/15/25 10:33 Patient Tobacco Use Status Never used Tobacco 03/15/25 10:12 e-Cigarette/Vaping Use Never Used 03/15/25 10:12 Thrive Assessment: Date of Thrive Assessment Date Thrive assessed 08/30/24 03/15/25 10:12 Currently or been in a relationship where the following occur: No concerns reported Const General: no acute distress HENMT Head: Yes normal to inspection Eyes General: appearance normal, both eyes and all related structures Resp Effort & Inspection: normal respiratory effort Auscultation: clear to auscultation bilaterally Cardio Rhythm: regular rhythm Heart sounds: S1 normal heart sound present and S2 normal heart sound present GI Palpation (GI): Soft to palpation Percussion: Yes normal to percussion Coding Level of Care Code Est Pt Level 3 (02719) Diagnoses Hyperglycemia R73.9 Obesity, morbid, BMI 40.0-49.9 E66.01 Assessment & Plan Assessment & Plan (1) Hyperglycemia: Code(s): R73.9 - Hyperglycemia, unspecified Category: Medical Plan: Continue ADA diet and monitor A1c (2) Obesity, morbid, BMI 40.0-49.9: Comment: BMI 52.3 08/2024 Code(s): E66.01 - Morbid (severe) obesity due to excess calories Category: Medical Plan: Continue increasing physical activity decreasing caloric intake Zepbound dose will be increased to 10 mg weekly and patient will follow-up in 2 months Orders: Orders Comprehensive Bath. Panel Fast 2 Months E66.01 - Morbid (severe) obesity due to excess calories, R73.9 - Hyperglycemia, unspecified Lipid Panel 2 Months E66.01 - Morbid (severe) obesity due to excess calories, R73.9 - Hyperglycemia, unspecified UA w Microscopic 2 Months E66.01 - Morbid (severe) obesity due to excess calories, R73.9 - Hyperglycemia, unspecified TSH reflex Free T4 2 Months E66.01 - Morbid (severe) obesity due to excess calories, R73.9 - Hyperglycemia, unspecified Complete Blood Count Auto Diff 2 Months E66.01 - Morbid (severe) obesity due to excess calories, R73.9 - Hyperglycemia, unspecified Hemoglobin A1c 2 Months R73.9 - Hyperglycemia, unspecified Medications: New Zepbound (tirzepatide (weight loss)) 10 mg (0.5 mL) subcut QWEEK 6 mL 0RF NS Discontinued Zepbound (tirzepatide (weight loss)) Discontinued Reason: Doctor's Order 7.5 mg (0.5 mL) subcut QWEEK 2 mL 2RF NS
[2025-03-15 10:28] VITALS: BP 104/76; PULSE 85; RESP 17; O2SAT 95; BMI 46.1
== END 2025-03-15 15:03 | disposition home or self-care (01) ==
LOC: HO.HMCC 09:42
PROVIDERS: PCP Internal Medicine; Visit Provider Internal Medicine
DX: R73.9 Hyperglycemia, unspecified (principal); E66.01 Morbid (severe) obesity due to excess calories; Z68.42 Body mass index [BMI] 45.0-49.9, adult

== ENCOUNTER 2025-04-04 15:07 | Outpatient (AMB) | payer BC, SELFPAY ==
--- NOTE | 2025-04-04 15:28 | MHC.OFFVIS ---
Vital Signs 04/04/25 15:36 Height 5 ft Weight 236 lb BMI 46.1 BP 108/60 Intake Visit Reasons: IUD check Ingot Caster Required: No Information Interpreted: non-clinical & clinical Surgical Services Director: Surgical Services Director Present (Heather CALZADA) Accompanied by: Self / Same As Patient Allergies amoxicillin (AMOXICILLIN) Allergy (Unknown, Verified 04/04/25 15:36) HIVES penicillin V Allergy (Unknown, Verified 04/04/25 15:36) hives Penicillins (PCN) Allergy (Unknown, Verified 04/04/25 15:36) HIVES Is last menstrual period known: No (mirena) HPI Comments Details: The patient is presenting for IUD check after 1 st period following IUD insertion. The patient has no complaints periods are normal, not painful, and flow is normal. [facility] Medical History Annual physical exam Cervical cancer screening Obesity, morbid, BMI 40.0-49.9 Hyperglycemia Surgical History Hx of plastic surgery Family History Father Hypertension Mental health disorder Mother No problems noted. Maternal Grandmother Breast cancer Social History Housing: House Alcohol intake: current Alcohol intake frequency: holidays/special occasions only Patient Tobacco Use Status: Never used Tobacco e-Cigarette/Vaping Use: Never Used service: No Current occupational status: employed Cognitive needs: No Hearing needs: No Vision needs: Yes Female Reproductive History Menstrual Age of Menarche: 14 control method: progestin IUCD Review of Systems Const All systems reviewed & are unremarkable except as noted in HPI and below Physical Exam Vital Signs: Last Vital Signs BP 108/60 04/04/25 15:36 BMI result Body Mass Index 46.1 General: Yes no CVA tenderness External Female Exam: normal external appearance and normal appearance of the urethra Speculum Exam - Vagina: normal appearance of the vagina, normal palpation, no lesions and no masses Speculum Exam - Cervix: normal appearance of the cervix, normal palpation, no lesions, no masses, nontender and Other cervical findings present (IUD string seen) Bimanual exam- vagina & uterus: normal bimanual exam, normal palpation, uterine size normal, normal palpation, uterine shape normal, No Cervical tenderness present and non-tender Bimanual Exam- Adnexa, other: normal adnexae Back/Spine/Pelvis Back: no CVA tenderness Results AMB Test Urine AMB Test Urine Negative Last Edit by Heather Vidal CMA on 04/04/25 15:40 Assessment & Plan Assessment & Plan (1) IUD check up: Code(s): Z30.431 - Encounter for routine checking of intrauterine contraceptive device Category: Medical Plan: UPT done in the office was negative. Discussed with the patient the finding on physical exam, IUD string in place, the patient was reassured. Instructions given to patient to call in case of temperature above 100.4, severe cramping/pelvic pain, abnormal discharge or abnormal uterine bleeding or if she misses her menstrual cycle. Otherwise follow-up at her annual exam appointment. All questions answered, the patient verbalized understanding. Orders: Orders AMB HCG Urine Test Today Z32.02 - Encounter for test, result negative Coding Level of Care Code Est Pt Level 3 (18520) Diagnoses IUD check up Z30.431
[2025-04-04 15:36] VITALS: BP 108/60; BMI 46.1
--- OUTSIDE RECORDS SUMMARY | 2025-04-04 18:37 | XMS_ITS | Encounter Summary ---
Author Organization [facility] Address [address] [place] [phone] Phone Care Team Providers Care Fuller Brush Man Name Role Phone Keya Mcclellan MD Primary Care Provider [phone] Encounter Details Date Type Department Care Team (Late st Contact Info) Description 08/23/2017 Conversion Encounter [facility] [address] [place] [address] Keya Mcclellan MD [address] [place] [address] Social History Tobacco Use Types Packs/Day Years [...] on filedocumented in this encounter Care Teams Fuller Brush Man Relationship Specialty Start Date End Date Keya Mcclellan MD [address] [place] [address] PCP - General 08/12/17 05/17/24 documented as of this encounter
--- OUTSIDE RECORDS SUMMARY | 2025-04-04 18:37 | XMS_ITS | Clinical Summary ---
Author Organization [facility] ity Address [address] [place] [address] Care Team Providers Care Correctional Sergeant Name Role Phone Unavailable Primary Care Provider [...] Depression Screening 04/06/2024 COVID-19 Vaccine ( - 2024-2 6 season) 2024 Influenza Vaccine (#1) 2024 RSV [...]
--- OUTSIDE RECORDS SUMMARY | 2025-04-04 18:37 | XMS_ITS | Clinical Summary ---
Author Organization [facility] Address [address] [place] [phone] Phone Care Team Providers Care Pulp Refiner Operator Name Role Phone Unavailable Primary Care [...]
== END 2025-04-04 15:40 | disposition home or self-care (01) ==
LOC: HO.HWS 15:08
PROVIDERS: PCP Internal Medicine; Visit Provider Obstetrics & Gynecology
DX: Z32.02 Encounter for pregnancy test, result negative (principal); Z30.431 Encounter for routine checking of intrauterine contraceptive device
CPT/HCPCS: 99213

== ENCOUNTER → 2025-04-04 15:07 | Outpatient (BNVA) | payer BC, SELFPAY | PROVIDERS: PCP Internal Medicine; Visit Provider Obstetrics & Gynecology | DX: Z30.431 Encounter for routine checking of intrauterine contraceptive device (principal); Z32.02 Encounter for pregnancy test, result negative | CPT/HCPCS: 81025 ==